=== PATIENT | female | born 1950 | race Two or more races ===

== ENCOUNTER 2024-09-06 15:24 | Inpatient (IN) | payer OTHER ==
[~2024-09-06] VITALS: Ht 160 cm; Wt 65.0 kg
--- NOTE | 2024-09-06 15:42 | ED.PDOC ---
GI ASSESSMENT HPI Comments 74 year old female LUIZA presents to the ED with chief complaint of N/V. Patient reports that about an hour ago, she has been experiencing multiple episodes of nausea and vomiting with associated chills after taking her daily HTN medication. Patient denies any chest pain, diarrhea, dizziness, headache, or dysuria. Patient complains of intermittent abdominal pain. Patient appears toxic and additionally, appears to be in poor overall health at time of evaluation. Patient was tachycardic at arrival. 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, Medications, Allergies Allergies: Coded Allergies: NO KNOWN ALLERGIES (Unverified , 09/06/24) Information Source: Patient, Emergency Med Personnel Mode of Arrival: Ambulatory Timing: Hours Duration: Since onset Prehospital treatment: None Quality: None Vomitus: Watery Stool: Normal Severity: Moderate Recent: Other (ingestion of daily medicine) Recent Hx of: None Pain Location: None Modifying Factors: Nothing Associated sign and symptoms: Nausea, Vomiting, Abdominal Pain Past Medical History PAST MEDICAL HISTORY: GERD, HTN Surgical History: Denies all surgeries ORTHO RN History: No Pertinent ORTHO RN History Family History Family History: Reviewed,noncontributory to illness Social History Smoker: Non-Smoker Alcohol: Denies ETOH Use Drugs: Denies Drug Use Lives In: Home Constitutional: reports: chills, fatigue, malaise, weakness; denies: diaphoresis, fever, sweats, others EENTM: denies: blurred vision, double vision, ear bleeding, ear discharge, ear drainage, ear pain, ear ringing, eye pain, eye redness, hearing loss, mouth pain, mouth swelling, nasal discharge, nose bleeding, nose congestion, nose pain, photophobia, tearing, throat pain, throat swelling, voice changes, others Respiratory: denies: cough, hemoptysis, orthopnea, SOB at rest, shortness of breath, SOB with excertion, stridor, wheezing, others Cardiovascular: denies: chest pain, dizzy spells, diaphoresis, Dyspnea on exertion, edema, irregular heart beat, left arm pain, lightheadedness, palpitations, PND, syncope, others Gastrointestinal: reports: nausea, vomiting; denies: abdomen distended, abdominal pain, blood streaked bowels, constipated, diarrhea, dysphagia, difficulty swallowing, hematemesis, melena, poor appetite, poor fluid intake, rectal bleeding, rectal pain, others Genitourinary: denies: abnormal vagina bleeding, burning, dyspareunia, dysuria, flank pain, frequency, hematuria, incontinence, pain, , vagina discharge, urgency, others Neurological: denies: dizziness, fainting, headache, left sided numbness, left sided weakness, numbness, paresthesia, pre-existing deficit, right sided numbness, right sided weakness, seizure, speech problems, tingling, tremors, weakness, others Musculoskeletal: denies: back pain, gout, joint pain, joint swelling, muscle pain, muscle stiffness, neck pain, others Integumetry: denies: bruises, change in color, change in hair/nails, dryness, laceration, lesions, lumps, rash, wounds, others Allergic/Immunocompromised: denies: Difficulty Healing, Frequent Infections, Hives, Itching, others Hematologic/Lymphatic: denies: anemia, blood clots, easy bleeding, easy bruising, swollen glands, others Endocrine: denies: excessive hunger, excessive sweating, excessive thirst, excessive urination, flushing, intolerance to cold, intolerance to heat, unexplained weight gain, unexplained weight loss, others Psychiatric: denies: anxiety, bipolar disorder, depression, hopeless, panic disorder, schizophrenia, sleepless, suicidal, others All Other Systems: Reviewed and Negative Physical Exam General Appearance: Moderate Distress (Patient was in moderate distress at time of evaluation.), Normal HEENT: Normal ENT Inspection, Pharynx Normal, TMs Normal Neck: Full Range of Motion, Non-Tender, Normal, Normal Inspection Respiratory: Chest Non-Tender, Lungs Clear, No Accessory Muscle Use, No Respiratory Distress, Normal Breath Sounds Cardiovascular: No Edema, No JVD, No Murmur, No Gallop, Normal Peripheral Pulses, Regular Rate/Rhythm Breast Exam: Deferred Gastrointestinal: Other ( Diffuse nonspecific abdominal pain throughout the periumbilical and epigastric region. No signs of trauma. No pulsatile masses.) Genitalia: Deferred Pelvic: Deferred Rectal: Deferred Extremities: No calf tenderness, Normal capillary refill, Normal inspection, Normal range of motion, Non-tender, No pedal edema Musculoskeletal : Apperance: Normal Neurologic: Alert, No Motor Deficits, Normal Affect, No Sensory Deficits Cerebellar Function: NOT DONE Reflexes: NOT DONE Skin: Dry, Normal Color, Warm Lymphatic: No Adenopathy Was a procedure done? Was a procedure done?: No GI differential Dx Differential Diagnosis: Cholangitis, Constipation, Gastroenteritis, Dehydration, Electrolyte Imbalance, Food Poisoning, Bacterial, Viral X-Ray, Labs, Meds, VS Vital Signs Date Time Temp Pulse Resp B/P (MAP) Pulse Ox O2 Delivery O2 Flow Rate FiO2 09/06/24 20:57 100.0 09/06/24 19:57 101.4 09/06/24 19:38 101.4 107 18 132/80 (97) 93 101.4 09/06/24 18:43 100.2 118 18 120/73 (89) 93 100.2 09/06/24 18:06 120 09/06/24 16:14 112 18 95 Room Air 09/06/24 16:14 98.9 112 18 145/65 (91) 95 98.9 09/06/24 15:40 98.8 90 18 161/134 (143) 94 98.8 Lab Test 09/06/24 18:03 09/06/24 16:21 09/06/24 15:56 Range/Units Lactic Acid Level 4.8 *H 5.0 *H 0.4-2.0 mmol/L Urine Color Light-yellow Yellow Urine Clarity Clear Clear Urine pH 5.0 5.0-9.0 Urine Specific [employer] 1.007 1.001-1.035 Urine Protein Negative Negative Urine Ketones 1+ H Negative Urine Blood Trace H Negative /uL Urine Nitrite Negative Negative Urine Bilirubin Negative Negative Urine Urobilinogen Normal Negative mg/dL Urine Leukocyte Esterase Negative Negative /uL Urine RBC 2 0 - 4 /hpf Urine Microscopic WBC 4 0-5 /HPF Urine Squamous Epithelial Cells Few <5 /hpf Urine Bacteria Few H None Seen /hpf Urine Mucus Few None Seen Urine Glucose 4+ H Normal mg/dL Influenza Type A Antigen Negative Negative Influenza Type B Antigen Negative Negative SARS-CoV-2 Antigen (Rapid) Negative NEGATIVE White Blood Count 3.4 L 4.4-10.8 10^3/uL Red Blood Count 5.03 4.0-5.20 10^6/uL Hemoglobin 16.9 H 12.2-16.2 g/dL Hematocrit 48.5 H 36.0-46.0 % Mean Corpuscular Volume 96.4 80.0-100.0 fL Mean Corpuscular Hemoglobin 33.6 H 28.0-32.0 pg Mean Corpuscular Hemoglobin Concent 34.9 32.0-36.0 g/dL Red Cell Distribution Width 12.4 11.8-14.3 % Platelet Count 199 140-450 10^3/uL Mean Platelet Volume 8.5 6.9-10.8 fL Neutrophils (%) (Auto) 37.0-80.0 % Lymphocytes (%) (Auto) 10.0-50.0 % Monocytes (%) (Auto) 0.0-12.0 % Basophils (%) (Auto) 0.0-2.0 % Neutrophils # (Auto) 1.6-8.6 10 ^3/uL Lymphocytes # (Auto) 0.4-5.4 10 ^3/uL Monocytes # (Auto) 0-1.3 10 ^3/uL Differential Total Cells Counted 100.0 100 Neutrophils % (Manual) 61 37.0-80.0 Band Neutrophils % (Manual) 5 Lymphocytes % (Manual) 25 10.0-50.0 Monocytes % (Manual) 9 0-12 Eosinophils % (Manual) 0 0-7 Basophils % (Manual) 0 0.0-2.0 Metamyelocytes % (manual) 0 Myelocytes % (Manual) 0 Promyelocytes % (Manual) 0 Blast Cells % (Manual) 0 Reactive Lymphocytes 0 Platelet Estimate Adequate Anisocytosis (manual) Slight Stomatocytes Few Sodium Level 140 136-145 mmol/L Potassium Level 3.8 3.5-5.1 mmol/L Chloride Level 104 98-107 mmol/L Carbon Dioxide Level 26 20-31 mmol/L Anion Gap 10 5-15 Blood Urea Nitrogen 20 9-23 mg/dL Creatinine 1.00 0.550-1.02 mg/dL Glomerular Filtration Rate Calc 59 >90 mL/min BUN/Creatinine Ratio 20.0 10.0-20.0 Serum Glucose 205 H 74-106 mg/dL Calcium Level 9.8 8.7-10.4 mg/dL Total Bilirubin 0.7 0.2-1.0 mg/dL Aspartate Amino Transferase (AST) 43 H 13-40 U/L Alanine Aminotransferase (ALT) 38 7-40 U/L Alkaline Phosphatase 163 H 46-116 U/L Troponin I High Sensitivity < 3 L </=34 ng/L B-Type Natriuretic Peptide 15.34 0-100 pg/mL Total Protein 7.1 5.7-8.2 g/dL Albumin 4.4 3.2-4.8 g/dL Lipase 39 12-53 U/L Current Medications Medications (Trade) Dose Ordered Sig/Stephanie Route Start Time Stop Time Status Last Admin Sodium Chloride 1,000 ml @ 250 mls/hr Q4H ONCE IV 09/06/24 15:45 09/06/24 19:44 DC 09/06/24 16:59 Ondansetron HCl (Zofran Po) 4 mg ONCE ONCE PO 09/06/24 15:45 09/06/24 15:46 DC 09/06/24 16:46 Metoclopramide HCl (Reglan Injection) 10 mg ONCE ONCE IV 09/06/24 15:45 09/06/24 15:46 DC 09/06/24 16:46 Piperacillin Sod/ Tazobactam Sod 100 ml @ 100 mls/hr ONCE ONCE IV 09/06/24 18:45 09/06/24 19:44 DC 09/06/24 21:15 Acetaminophen (Tylenol Tablet) 1,000 mg ONCE ONCE PO 09/06/24 19:45 09/06/24 19:46 DC 09/06/24 19:57 Vancomycin HCl 250 ml @ 250 mls/hr ONCE ONCE IV 09/06/24 19:45 09/06/24 20:44 DC 09/06/24 20:20 X-Ray, Labs, Meds, VS Comment All studies performed in the ED were evaluated by me personally. Patient presented with a leukopenia and additionally, spiked fever and blood pressure concerns and therefore, initiated a septic protocol. The events additional findings of the laboratories remarkable for an elevated lactic acid and hyperglycemia. Mechanism chest x-ray was pending at time of this note. Patient will be admitted for sepsis medical as well as management of any other comorbidities. Time of 1ST Reevaluation: 22:03 Reevaluation 1ST: Improved Consultation: PCP Patient Education/Counseling: Diagnosis, Treatment Family Education/Counseling: Diagnosis, Treatment, No Family Present Sepsis Sepsis Reasesment Focused Exam Sepsis focused exam: focus exam completed Departure 1 Departure Time of Disposition: 22:05 Impression: Primary Impression: Sepsis Additional Impression: Hyperglycemia due to diabetes mellitus Disposition: ADMITTED INPATIENT Condition: Stable Discharged With: Self Critical Care Note Critical Care Time?: Yes (45 min-critical care time only) Critical care comment: Due to a high probability of a clinically significant and possibly life- threatening deterioration, the patient required my highest level of preparedness to intervene emergently and therefore, I personally provided 45 minutes of criti [place] care time exclusive of time spent on separate billable procedures. This critical care time includes, but is not limited to, obtaining additional history, re-examination of the patient, re-examination of pulse oximetry, ordering and reviewing of studies, arrangement of urgent treatments with the development of a management plan as well as evaluation to patient's response to treatment with frequent reassessments and discussions with other providers. Stability Stability form required: No Heart Score Heart Score: Heart Score Response (Comments) Value History Slightly Suspicious 0 EKG Repolarization Disturb 1 Age >65 2 Risk Factors 1 or 2 risk factors 1 Troponin Normal limit 0 Total 4 I personally scribed for BREEZY WOODARD PAC ([email or web address]) on 09/06/24 at 15:42. Electronically submitted by Daniel Harrison ([email or web address]). BREEZY WOODARD PAC Sep 06, 2024 15:42
[2024-09-06 16:27] LABS: Hematocrit 48.5 % (36.0-46.0); Hemoglobin 16.9 g/dL (12.2-16.2); Mean Corpuscular Hemoglobin 33.6 pg (28.0-32.0); Mean Corpuscular Hgb Conc. 34.9 g/dL (32.0-36.0); Mean Corpuscular Volume 96.4 fL (80.0-100.0); Platelet Count (auto) 199 10^3/uL (140-450); Red Blood Cells 5.03 10^6/uL (4.0-5.20); Red Cell Distribution Width 12.4 % (11.8-14.3); White Blood Cell 3.4 10^3/uL (4.4-10.8)
[2024-09-06 16:29] LABS: Alanine Aminotransferase 38 U/L (7-40); Albumin 4.4 g/dL (3.2-4.8); Anion Gap 10 (5-15); Bilirubin, Total 0.7 mg/dL (0.2-1.0); Blood Urea Nitrogen 20 mg/dL (9-23); Calcium 9.8 mg/dL (8.7-10.4); Carbon Dioxide 26 mmol/L (20-31); Chloride 104 mmol/L (98-107); Lipase 39 U/L (12-53); Potassium 3.8 mmol/L (3.5-5.1); Sodium 140 mmol/L (136-145); Total Protein 7.1 g/dL (5.7-8.2)
[2024-09-06 16:34] LABS: Alkaline Phosphatase 163 U/L (46-116); Aspartate Aminotransferase 43 U/L (13-40); Glucose 205 mg/dL (74-106)
[2024-09-06 16:36] LABS: Basophils % (manual) 0 (0.0-2.0); Blast Cells 0; Eosinophils % (manual) 0 (0-7); Metamyelocytes % 0; Myelocytes % 0; Promyelocytes % 0; Reactive Lymphocytes 0
[2024-09-06] MEDS: ONDANSETRON ODT 4 MG TAB PO ONE (16:46)
[2024-09-06] MEDS: METOCLOPRAMIDE HCL 5MG/ml INJ 2ml VIAL IV ONE (16:46)
[2024-09-06] MEDS: SODIUM CHLORIDE 0.9% 1,000 ML IV ONE (16:59)
[2024-09-06 17:02] LABS: Anisocytosis Slight; Band Neutrophils % (manual) 5; Lymphocytes % (manual) 25 (10.0-50.0); Monocytes % (manual) 9 (0-12); Platelet Estimate Adequate; Stomatocytes Few
[2024-09-06 17:10] LABS: COVID19 ANTIGEN SOFIA FIA NEGATIVE (NEGATIVE); Rapid Influenza A Negative (Negative); Rapid Influenza B Negative (Negative)
[2024-09-06] MEDS ORDERED: VANCOMYCIN PER PHARMACY 0 MG IV SCH (18:45)
[2024-09-06] MEDS: ACETAMINOPHEN 325 MG TAB PO ONE (19:57)
[2024-09-06] MEDS: VANCOMYCIN 1GM/250ML KIT 250 ML IV ONE (20:20)
[2024-09-06] MEDS: PIPERACILLIN-TAZOB 3.375GM 100 ML IV ONE (21:15)
[2024-09-06 21:40] LABS: Urine Bacteria FEW /hpf (None Seen); Urine Blood TRACE /uL (Negative); Urine Clarity Clear (Clear); Urine Color Light-Yellow (Yellow); Urine Mucus FEW (None Seen); Urine Protein, UAD Negative (Negative); Urine Specific Gravity 1.007 (1.001-1.035); Urine Squamous Epithelial Cell FEW /hpf (<5); Urine Urobilinogen Normal (Negative); Urine WBC 4 /HPF (0-5)
[2024-09-06 23:57] VITALS: PULSE 107; RESP 16; O2SAT 95
[2024-09-07] VITALS (8 sets, daily range): BP systolic 84–127; BP diastolic 41–61; PULSE 80–98; RESP 16–20; TEMP 98.2–101.6; O2SAT 93–98
--- NOTE | 2024-09-07 00:33 | DVH ---
Exam: CT CT AB PEL WO CON-NO ORAL OR IV History: ABD. PAIN Comparison Study: None Technique: Multidetector spiral CT of the abdomen was performed from lung bases to pubic symphysis. I maging was performed without IV contrast. Axial, coronal and sagittal multiplanar reformats were obta ined from the axial data set by the technologist. Radiation Dose : 1. Abdomen/Pelvis: CTDIvol 8.38 mGy, DLP 479.19 mGy*cm. Findings: Evaluation of solid organs is limited due to lack of intravenous contrast use. Lung Bases: No acute or significant lung base finding. Moderate posterior bibasilar subsegmental atel ectasis. Normal heart size. No pleural or pericardial effusion. Liver: The liver is enlarged, measuring up to 20.1 cm in craniocaudal dimension. Diffuse hepatic stea tosis. No focal lesions. Gallbladder and Biliary Tree: Calcific debris within the gallbladder. Spleen: Unremarkable Pancreas: The pancreas is grossly normal in appearance. Adrenal Glands: Unremarkable Kidneys: Kidneys are grossly normal without calculi or hydronephrosis. Bladder: Grossly unremarkable for degree of distention. Bowel: The stomach is grossly normal in appearance. Small bowel and colon are normal in caliber and d istribution. Diverticulosis coli. The appendix is not visualized; however, no secondary findings of a cute appendicitis identified. Ascites: Absent Lymphadenopathy: No mesenteric, retroperitoneal or periportal lymphadenopathy. Abdominal Wall and Mesentery: Unremarkable. Vasculature: The visualized abdominal aorta is normal in size and caliber. Atherosclerotic vascular c alcifications are identified. Evaluation of abdominal and pelvic vessels is limited due to lack of i ntravenous contrast. Pelvic Organs: Unremarkable Musculoskeletal: No aggressive focal bony lesions, acute fractures or dislocation. IMPRESSION: 1. No acute abdominal or pelvic findings. 2. Hepatomegaly and hepatic steatosis. Radiation optimization: All CT scans at this facility use at least one of these dose optimization raysa hniques: automated exposure control mA and/or kV adjustment per patient size (includes targeted exam s where dose is matched to clinical indication) or iterative reconstruction.
[2024-09-07 01:57] LABS: Lactic Acid w/Reflex 6.4 mmol/L (0.4-2.0)
[2024-09-07] MEDS ORDERED: HYDROcodone-ACET 5/325MG TAB PO PRN (02:45)
[2024-09-07] MEDS ORDERED: MORPHINE SULFATE INJ 2 MG/ml SYRG IV PRN (02:45)
[2024-09-07] MEDS ORDERED: ONDANSETRON HCL 4 MG/2 ML VIAL IV PRN (02:45)
[2024-09-07] MEDS: SODIUM CHLORIDE 0.9% 1,000 ML IV ONE ×2 (03:49→09:04)
--- NOTE | 2024-09-07 04:19 | DVHHP2 ---
History of Present Illness Reason for Visit: Abdominal pain History of Present Illness 74-year-old female presents for evaluation of abdominal pain. Patient reports intermittent episodes of abdominal pain for the past one day. She states having multiple episodes of nausea with vomiting. She states not being able to keep anything down her stomach. She reports feeling dehydrated. Denies fever or chills. No dizziness. No other acute complaints. Past Medical History Hypertension and GERD Past Surgical History Denies Family History Noncontributory Smoke: No ALCOHOL: none Drugs: None Lives: with Family Review of Systems Review of Systems Review of systems are currently negative otherwise addressed in HPI. Allergies: Coded Allergies: NO KNOWN ALLERGIES (Unverified , 09/06/24) Medications Current Medications Medications Dose Ordered Sig/Stephanie Route Start Time Stop Time Status Last Admin Dose Admin Vancomycin HCl 0 ml @ 0 mls/hr UD IV 09/06/24 18:45 UNV Ceftriaxone Sodium 50 ml @ 100 mls/hr DAILY@09 IV 09/07/24 09:00 Pantoprazole Sodium 40 mg DAILY IV 09/07/24 10:00 Acetaminophen/ Hydrocodone Bitart 1 tab Q4HP PRN PO 09/07/24 02:45 Ondansetron HCl 4 mg Q4HP PRN IV 09/07/24 02:45 Acetaminophen 650 mg Q6HP PRN PO 09/07/24 02:45 Morphine Sulfate 2 mg Q6HPRN PRN IV 09/07/24 02:45 Exam Vital Signs Vital Signs Date Time Temp Pulse Resp B/P (MAP) Pulse Ox O2 Delivery O2 Flow Rate FiO2 09/07/24 03:00 88 18 107/59 (75) 99 09/07/24 00:00 98.2 98.2 09/06/24 23:57 Nasal Cannula* 2 28 Exam Gen: 74-year-old female in mild distress Skin: Warm, dry, normal color and texture, no rash. HEENT: Normocephalic atraumatic, mucous membranes moist and pink. Neck: Cervical and supraclavicular nodes normal without enlargement, trachea is midline, thyroid gland is normal without masses. Pulmonary: Clear to auscultation and percussion bilaterally. Cardiac: Sinus tachycardia Abdomen: Soft, nontender, nondistended, bowel sounds present all 4 quadrants, no guarding, no rigidity, no organomegaly. Extremities: No cyanosis, clubbing, no edema Neuro: Cranial nerves II through XII grossly intact, normal affect and speech, no focal motor deficits. Labs/Xrays ORDERING PHYSICIAN: SHAHZAD PATEL PROCEDURE(s): ABPL - CT AB PEL WO CON-NO ORAL OR IV REASON: ABD. PAIN ORDER NUMBER(s): [id number], ACCESSION NUMBER(s): [id number] Exam: CT CT AB PEL WO CON-NO ORAL OR IV History: ABD. PAIN Comparison Study: None Technique: Multidetector spiral CT of the abdomen was performed from lung bases to pubic symphysis. Imaging was performed without IV contrast. Axial, coronal and sagittal multiplanar reformats were obtained from the axial data set by the technologist. Radiation Dose : 1. Abdomen/Pelvis: CTDIvol 8.38 mGy, DLP 479.19 mGy*cm. Findings: Evaluation of solid organs is limited due to lack of intravenous contrast use. Lung Bases: No acute or significant lung base finding. Moderate posterior bibasilar subsegmental atelectasis. Normal heart size. No pleural or pericardial effusion. Liver: The liver is enlarged, measuring up to 20.1 cm in craniocaudal dimension. Diffuse hepatic steatosis. No focal lesions. Gallbladder and Biliary Tree: Calcific debris within the gallbladder. Spleen: Unremarkable Pancreas: The pancreas is grossly normal in appearance. Adrenal Glands: Unremarkable Kidneys: Kidneys are grossly normal without calculi or hydronephrosis. Bladder: Grossly unremarkable for degree of distention. Bowel: The stomach is grossly normal in appearance. Small bowel and colon are normal in caliber and distribution. Diverticulosis coli. The appendix is not visualized; however, no secondary findings of acute appendicitis identified. Ascites: Absent Lymphadenopathy: No mesenteric, retroperitoneal or periportal lymphadenopathy. Abdominal Wall and Mesentery: Unremarkable. Vasculature: The visualized abdominal aorta is normal in size and caliber. Atherosclerotic vascular calcifications are identified. Evaluation of abdominal and pelvic vessels is limited due to lack of intravenous contrast. Pelvic Organs: Unremarkable Musculoskeletal: No aggressive focal bony lesions, acute fractures or dislocation. IMPRESSION: 1. No acute abdominal or pelvic findings. 2. Hepatomegaly and hepatic steatosis. Radiation optimization: All CT scans at this facility use at least one of these dose optimization techniques: automated exposure control mA and/or kV adjustment per patient size (includes targeted exams where dose is matched to clinical indication) or iterative reconstruction. Labs Test 09/07/24 01:20 09/06/24 16:21 09/06/24 15:56 Range/Units Lactic Acid Level 6.4 *H 0.4-2.0 mmol/L Urine Color Light-yellow Yellow Urine Clarity Clear Clear Urine pH 5.0 5.0-9.0 Urine Specific [place] 1.007 1.001-1.035 Urine Protein Negative Negative Urine Ketones 1+ H Negative Urine Blood Trace H Negative /uL Urine Nitrite Negative Negative Urine Bilirubin Negative Negative Urine Urobilinogen Normal Negative mg/dL Urine Leukocyte Esterase Negative Negative /uL Urine RBC 2 0 - 4 /hpf Urine Microscopic WBC 4 0-5 /HPF Urine Squamous Epithelial Cells Few <5 /hpf Urine Bacteria Few H None Seen /hpf Urine Mucus Few None Seen Urine Glucose 4+ H Normal mg/dL Influenza Type A Antigen Negative Negative Influenza Type B Antigen Negative Negative SARS-CoV-2 Antigen (Rapid) Negative NEGATIVE White Blood Count 3.4 L 4.4-10.8 10^3/uL Red Blood Count 5.03 4.0-5.20 10^6/uL Hemoglobin 16.9 H 12.2-16.2 g/dL Hematocrit 48.5 H 36.0-46.0 % Mean Corpuscular Volume 96.4 80.0-100.0 fL Mean Corpuscular Hemoglobin 33.6 H 28.0-32.0 pg Mean Corpuscular Hemoglobin Concent 34.9 32.0-36.0 g/dL Red Cell Distribution Width 12.4 11.8-14.3 % Platelet Count 199 140-450 10^3/uL Mean Platelet Volume 8.5 6.9-10.8 fL Neutrophils (%) (Auto) 37.0-80.0 % Lymphocytes (%) (Auto) 10.0-50.0 % Monocytes (%) (Auto) 0.0-12.0 % Basophils (%) (Auto) 0.0-2.0 % Neutrophils # (Auto) 1.6-8.6 10 ^3/uL Lymphocytes # (Auto) 0.4-5.4 10 ^3/uL Monocytes # (Auto) 0-1.3 10 ^3/uL Differential Total Cells Counted 100.0 100 Neutrophils % (Manual) 61 37.0-80.0 Band Neutrophils % (Manual) 5 Lymphocytes % (Manual) 25 10.0-50.0 Monocytes % (Manual) 9 0-12 Eosinophils % (Manual) 0 0-7 Basophils % (Manual) 0 0.0-2.0 Metamyelocytes % (manual) 0 Myelocytes % (Manual) 0 Promyelocytes % (Manual) 0 Blast Cells % (Manual) 0 Reactive Lymphocytes 0 Platelet Estimate Adequate Anisocytosis (manual) Slight Stomatocytes Few Sodium Level 140 136-145 mmol/L Potassium Level 3.8 3.5-5.1 mmol/L Chloride Level 104 98-107 mmol/L Carbon Dioxide Level 26 20-31 mmol/L Anion Gap 10 5-15 Blood Urea Nitrogen 20 9-23 mg/dL Creatinine 1.00 0.550-1.02 mg/dL Glomerular Filtration Rate Calc 59 >90 mL/min BUN/Creatinine Ratio 20.0 10.0-20.0 Serum Glucose 205 H 74-106 mg/dL Calcium Level 9.8 8.7-10.4 mg/dL Total Bilirubin 0.7 0.2-1.0 mg/dL Aspartate Amino Transferase (AST) 43 H 13-40 U/L Alanine Aminotransferase (ALT) 38 7-40 U/L Alkaline Phosphatase 163 H 46-116 U/L Troponin I High Sensitivity < 3 L </=34 ng/L B-Type Natriuretic Peptide 15.34 0-100 pg/mL Total Protein 7.1 5.7-8.2 g/dL Albumin 4.4 3.2-4.8 g/dL Lipase 39 12-53 U/L Assessment/Plan Assessment/Plan Assessment Acute abdominal pain SIRS Lactic acidosis Acute gastroenteritis Plan Admit the patient to [facility] to the hospitalist Clear liquid diet GI consult Maintenance IV fluids Pain management Continue treatment per orders. Plan discussed with: Patient My Orders Orders - SHAHZAD PATEL AGACNP Procedure Category Date Status Time Ct Ab Pel Wo Con-No CT 09/06/24 Resulted Oral Or Iv 22:22 Clear Liq Diet DIET 09/07/24 Transmitted Breakfast * Gi D[facility] Operator Helper CONS 09/07/24 Transmitted 02:40 Ceftriaxone 1gm/50ml PHA 09/07/24 In Process D5w (Rocephin) 09:00 Sodium Chloride 0.9% PHA 09/07/24 In Process 02:45 Pantoprazole PHA 09/07/24 In Process (Protonix) 10:00 Basic Metabolic Panel LAB 09/08/24 Verified 04:00 Admit ADMIT 09/07/24 Transmitted 02:40 Hydrocodone-Acet PHA 09/07/24 In Process 5/325mg Tab ([place] 02:45 Ondansetron Hcl PHA 09/07/24 In Process (Zofran) 02:45 Complete Blood Count LAB 09/08/24 Verified 04:00 Condition: Stable TERRA 09/07/24 In Process 02:40 Acetaminophen Tablet PHA 09/07/24 In Process (Tylenol Tablet) 02:45 Bedrest With Bathroom TERRA 09/07/24 In Process Privileg 02:40 Morphine Sulfate PHA 09/07/24 In Process Injection 02:45 Date of Service: Sep 07, 2024 Billing Provider: SHAHZAD PATEL Common Visit Codes: [id number] INP/OBS CARE (HIGH) SHAHZAD PATEL Sep 07, 2024 04:19
[2024-09-07] MEDS: SODIUM CHLORIDE 0.9% 500 ML IV ONE ×2 (04:34→21:50)
[2024-09-07] MEDS: ACETAMINOPHEN 325 MG TAB PO PRN (04:46)
[2024-09-07] MEDS ORDERED: PANT40T PO (04:50)
[2024-09-07] MEDS ORDERED: NITR100C6 PO (04:50)
[2024-09-07] MEDS ORDERED: LOS25T PO (04:50)
[2024-09-07] MEDS ORDERED: MET50T PO (04:50)
[2024-09-07] MEDS ORDERED: VANCOMYCIN PER PHARMACY 0 MG IV SCH ×2 (08:00→21:45)
[2024-09-07] MEDS ORDERED: cefTRIAXone 1GM/50ML D5W 50 ML IV SCH (09:00)
[2024-09-07] MEDS: PANTOPRAZOLE 40 MG/10 ML VIAL INJ IV SCH (09:04)
[2024-09-07] MEDS: PIPERACILLIN-TAZOB 3.375GM 100 ML IV SCH (09:05)
--- NOTE | 2024-09-07 11:12 | DVHPN2 ---
Subjective Feels better More alert and oriented Changes from previous H/P or p: Changes Objective Vitals Vital Signs Date Time Temp Pulse Resp B/P (MAP) Pulse Ox O2 Delivery O2 Flow Rate FiO2 09/07/24 08:34 98.2 83 18 111/59 (76) 94 98.2 09/07/24 08:15 Nasal Cannula* 2 28 Intake/Output Intake and Output 09/07/24 07:00 Intake Total 550 ml Balance 550 ml Intake Oral 50 ml IV Total 500 ml General Appearance: Alert, Oriented X3, Cooperative Lungs: Clear to auscultation, Normal air movement Cardiovascular: Regular rate, Normal S1 Abdomen: Normal bowel sounds, Soft, No tenderness Extremities: No edema Medications Current Medications Medications Dose Ordered Sig/Stephanie Route Start Time Stop Time Status Last Admin Dose Admin Pantoprazole Sodium 40 mg DAILY IV 09/07/24 10:00 09/07/24 09:04 40 MG Acetaminophen/ Hydrocodone Bitart 1 tab Q4HP PRN PO 09/07/24 02:45 Ondansetron HCl 4 mg Q4HP PRN IV 09/07/24 02:45 Acetaminophen 650 mg Q6HP PRN PO 09/07/24 02:45 09/07/24 04:46 650 MG Morphine Sulfate 2 mg Q6HPRN PRN IV 09/07/24 02:45 Piperacillin Sod/ Tazobactam Sod 100 ml @ 25 mls/hr Q8HR IV 09/07/24 08:30 09/07/24 09:05 25 MLS/HR Laboratory Results Laboratory Tests 09/06/24 15:56 Chemistry Test 09/06/24 15:56 Albumin 4.4 g/dL (3.2-4.8) Calcium Level 9.8 mg/dL (8.7-10.4) Total Protein 7.1 g/dL (5.7-8.2) Lipid panel Test 09/06/24 15:56 Lipase 39 U/L (12-53) Cardiac Markers Test 09/06/24 15:56 B-Type Natriuretic Peptide 15.34 pg/mL (0-100) LFT Test 09/06/24 15:56 Alanine Aminotransferase (ALT) 38 U/L (7-40) Alkaline Phosphatase 163 U/L (46-116) H Aspartate Amino Transferase (AST) 43 U/L (13-40) H Total Bilirubin 0.7 mg/dL (0.2-1.0) Urinalysis Test 09/06/24 16:21 Urine Color Light-yellow (Yellow) Urine Clarity Clear (Clear) Urine pH 5.0 (5.0-9.0) Urine Specific [place] 1.007 (1.001-1.035) Urine Protein Negative (Negative) Urine Ketones 1+ (Negative) H Urine Blood Trace /uL (Negative) H Urine Nitrite Negative (Negative) Urine Bilirubin Negative (Negative) Urine Urobilinogen Normal mg/dL (Negative) Urine Leukocyte Esterase Negative /uL (Negative) Urine RBC 2 /hpf (0 - 4) Urine Microscopic WBC 4 /HPF (0-5) Urine Squamous Epithelial Cells Few /hpf (<5) Urine Bacteria Few /hpf (None Seen) H Urine Mucus Few (None Seen) Urine Glucose 4+ mg/dL (Normal) H Microbiology Microbiology Date/Time Source Procedure Growth Status 09/06/24 19:00 Blood Blood Culture - Preliminary Resulted Assessment/Plan Assessment/Plan Acute metabolic encephalopathy Sepsis UTI Bacteremia with G- rods HTN GERD PLAN: IV Zosyn Advance diet Blood culture g- rods Physical therapy Discussed with family at the bedside Plan discussed with: Patient, Daughter My Orders Orders - SHAHRIAR SHAH MD Procedure Category Date Status Time Mechanical Soft Diet DIET 09/07/24 Transmitted Lunch Pt Request For Service PT 09/07/24 Logged 10:42 Date of Service: Sep 07, 2024 Billing Provider: SHAHRIAR SHAH MD Common Visit Codes: NOT BILLABLE SHAHRIAR SHAH MD Sep 07, 2024 11:12
[2024-09-07 19:06] LABS: Base Excess -6.8 mmol/L (-2.0-3.0)
[2024-09-07] MEDS ORDERED: VANCOMYCIN 1GM/250ML KIT 250 ML IV SCH (20:00)
[2024-09-07] MEDS: SODIUM BICARB 8.4% 50Meq/50ml SYR Vial IV ONE (20:04)
--- NOTE | 2024-09-07 21:10 | DVHINCON2 ---
Date of service: Sep 07, 2024 Referring Physician Laci Maria NP Reason for Consultation Acute hypoxic respiratory failure History of Present Illness A 74-year-old woman with past medical history of hypertension and GERD who presented to ED on 09/06/24 for evaluation of abdominal pain. Patient reported intermittent episodes of abdominal pain for the past one day as well as multiple episodes of nausea with vomiting. She has not been able to keep anything down her stomach, feeling dehydrated. Denied fever, chills, dizziness or other acute complaints. Patient was admitted for further care, and pulmonary consultation is requested for evaluation and management of acute hypoxic respiratory failure. Review of Systems: 14-point review of systems negative unless otherwise noted above. Past Medical History Hypertension and GERD Past Surgical History: Denies Medications: Reviewed. Allergies: No known drug allergies. Family History: Cancer Social History: Nonsmoker. No alcohol or illicit drug use. Family History: FH: cancer of trachea, bronchus and lung G8 FATHER FHx: cancer G8 MOTHER Allergies: Coded Allergies: NO KNOWN ALLERGIES (Unverified , 09/06/24) Home Meds Reported Medications Nitrofurantoin Monohyd Macro (Nitrofurantoin Monohydrat) 100 Mg Cap, 1 CAP PO BID 09/07/24 Metoprolol Tartrate (LOPRESSOR TABLET) 50 Mg Tb, 1 TAB PO BID 09/07/24 Pantoprazole Sodium Sesquihydr (Pantoprazole Sodium) 40 Mg Tab, 1 TAB PO DAILY 09/07/24 Losartan Potassium (Losartan Potassium) 25 Mg Tab, 1 TAB PO DAILY 09/07/24 Current Medications Current Medications Medications (Trade) Dose Ordered Sig/Stephanie Route PRN Reason Start Time Stop Time Status Last Admin Ceftriaxone Sodium 50 ml @ 100 mls/hr DAILY@09 IV 09/07/24 09:00 09/07/24 07:55 DC Pantoprazole Sodium (Protonix) 40 mg DAILY IV 09/07/24 10:00 09/07/24 09:04 Acetaminophen/ Hydrocodone Bitart ([place] 5/325MG Tab) 1 tab Q4HP PRN PO MODERATE PAIN (4-6 PAIN SCALE) 09/07/24 02:45 09/07/24 11:12 DC Ondansetron HCl (Zofran) 4 mg Q4HP PRN IV NAUSEA / VOMITING 09/07/24 02:45 Acetaminophen (Tylenol Tablet) 650 mg Q6HP PRN PO PAIN SCALE 1-3 OR TEMP>100.4 09/07/24 02:45 09/07/24 18:45 Morphine Sulfate 2 mg Q6HPRN PRN IV SEVERE PAIN (7-10 PAIN SCALE) 09/07/24 02:45 Vancomycin HCl 0 ml @ 0 mls/hr UD IV 09/07/24 08:00 09/07/24 10:42 DC Piperacillin Sod/ Tazobactam Sod 100 ml @ 25 mls/hr Q8HR IV 09/07/24 08:30 09/07/24 20:51 Vancomycin HCl 250 ml @ 200 mls/hr Q24H IV 09/07/24 20:00 09/07/24 10:42 DC Vital Signs Vital Signs Date Time Temp Pulse Resp B/P (MAP) Pulse Ox O2 Delivery O2 Flow Rate FiO2 09/07/24 19:45 99.0 09/07/24 16:35 84 18 112/43 (66) 96 09/07/24 08:15 Nasal Cannula* 2 28 Physical Exam Gen.: Patient lying in bed in no apparent distress. On supplemental oxygen. Head: Normocephalic, atraumatic. Eyes: EOMI/PERRLA. Ears: Normal hearing. Normal anatomy. Neck/trachea: Trachea midline, supple. Nose: Normal external anatomy. Mouth: Moist mucous membranes. Chest: Decreased air entry bilaterally. No wheezing or rhonchi. Cardiovascular: Positive S1, positive S2. Regular rate and rhythm. Abdomen: Positive bowel sounds in all 4 quadrants. Soft, non-tender, non- distended. : Deferred. Rectal: Deferred. Skin: Warm, dry. Intact. Extremities: 2+ radial pulses bilaterally. No lower extremity edema. Neuro: Awake, alert, oriented x3. No gross motor or sensory deficits. Cranial nerves II through XII intact. Gait not assessed. Labs/Diagnostic Data Labs Test 09/07/24 18:55 09/07/24 01:20 09/06/24 16:21 09/06/24 15:56 Range/Units Blood Gas Specimen Type Arterial Blood Gas Sample Site Right radial Blood Gas Patient Temperature 37.0 Arterial Blood Date Drawn [id number] Arterial Blood pH 7.446 7.350-7.450 Arterial Blood Partial Pressure CO2 22.1 L 32.0-45.0 mmHg Arterial Blood Partial Pressure O2 68.2 L 83.0-108.0 mmHg Arterial Blood HCO3 14.9 L 21.0-28.0 mmol/L Arterial Blood Oxygen Saturation 94.7 94.0-98.0 % Arterial Blood Base Excess -6.8 L -2.0-3.0 mmol/L Arterial Blood Oxyhemoglobin 94.1 94.0-98.0 % Arterial Blood Carboxyhemoglobin 0.2 L 0.5-1.5 % Arterial Blood Methemoglobin 0.4 0.0-1.5 % Jerald Test Modified Blood Gas Total Hemoglobin 14.90 12.0-16.0 g/dL Blood Gas Liter Flow 4.00 Blood Gas Modality Nasal cannula Blood Gas Spontaneous Rate 22 FiO2 % 36.0 Specimen Drawn By kathyton rt Lactic Acid Level 6.4 *H 0.4-2.0 mmol/L Urine Color Light-yellow Yellow Urine Clarity Clear Clear Urine pH 5.0 5.0-9.0 Urine Specific [place] 1.007 1.001-1.035 Urine Protein Negative Negative Urine Ketones 1+ H Negative Urine Blood Trace H Negative /uL Urine Nitrite Negative Negative Urine Bilirubin Negative Negative Urine Urobilinogen Normal Negative mg/dL Urine Leukocyte Esterase Negative Negative /uL Urine RBC 2 0 - 4 /hpf Urine Microscopic WBC 4 0-5 /HPF Urine Squamous Epithelial Cells Few <5 /hpf Urine Bacteria Few H None Seen /hpf Urine Mucus Few None Seen Urine Glucose 4+ H Normal mg/dL Influenza Type A Antigen Negative Negative Influenza Type B Antigen Negative Negative SARS-CoV-2 Antigen (Rapid) Negative NEGATIVE White Blood Count 3.4 L 4.4-10.8 10^3/uL Red Blood Count 5.03 4.0-5.20 10^6/uL Hemoglobin 16.9 H 12.2-16.2 g/dL Hematocrit 48.5 H 36.0-46.0 % Mean Corpuscular Volume 96.4 80.0-100.0 fL Mean Corpuscular Hemoglobin 33.6 H 28.0-32.0 pg Mean Corpuscular Hemoglobin Concent 34.9 32.0-36.0 g/dL Red Cell Distribution Width 12.4 11.8-14.3 % Platelet Count 199 140-450 10^3/uL Mean Platelet Volume 8.5 6.9-10.8 fL Neutrophils (%) (Auto) 37.0-80.0 % Lymphocytes (%) (Auto) 10.0-50.0 % Monocytes (%) (Auto) 0.0-12.0 % Basophils (%) (Auto) 0.0-2.0 % Neutrophils # (Auto) 1.6-8.6 10 ^3/uL Lymphocytes # (Auto) 0.4-5.4 10 ^3/uL Monocytes # (Auto) 0-1.3 10 ^3/uL Differential Total Cells Counted 100.0 100 Neutrophils % (Manual) 61 37.0-80.0 Band Neutrophils % (Manual) 5 Lymphocytes % (Manual) 25 10.0-50.0 Monocytes % (Manual) 9 0-12 Eosinophils % (Manual) 0 0-7 Basophils % (Manual) 0 0.0-2.0 Metamyelocytes % (manual) 0 Myelocytes % (Manual) 0 Promyelocytes % (Manual) 0 Blast Cells % (Manual) 0 Reactive Lymphocytes 0 Platelet Estimate Adequate Anisocytosis (manual) Slight Stomatocytes Few Sodium Level 140 136-145 mmol/L Potassium Level 3.8 3.5-5.1 mmol/L Chloride Level 104 98-107 mmol/L Carbon Dioxide Level 26 20-31 mmol/L Anion Gap 10 5-15 Blood Urea Nitrogen 20 9-23 mg/dL Creatinine 1.00 0.550-1.02 mg/dL Glomerular Filtration Rate Calc 59 >90 mL/min BUN/Creatinine Ratio 20.0 10.0-20.0 Serum Glucose 205 H 74-106 mg/dL Calcium Level 9.8 8.7-10.4 mg/dL Total Bilirubin 0.7 0.2-1.0 mg/dL Aspartate Amino Transferase (AST) 43 H 13-40 U/L Alanine Aminotransferase (ALT) 38 7-40 U/L Alkaline Phosphatase 163 H 46-116 U/L Troponin I High Sensitivity < 3 L </=34 ng/L B-Type Natriuretic Peptide 15.34 0-100 pg/mL Total Protein 7.1 5.7-8.2 g/dL Albumin 4.4 3.2-4.8 g/dL Lipase 39 12-53 U/L Microbiology Date/Time Source Procedure Growth Status 09/06/24 19:00 Blood Blood Culture - Preliminary Resulted Assessment Impression: Acute hypoxic respiratory failure Sepsis due to Bacteremia with GPCs Lactic acidosis Acute gastroenteritis Abdominal pain, acute Febrile Plan: Supplemental oxygen Titrate to keep O2 sats above 92%. Patient noted to be febrile at 100.8 Obtain STAT ABG and chest x-ray. Tylenol for fevers. Continue antibiotics Follow up blood cultures - positive for GPC Pain control Avoid oversedation Monitor renal function. Monitor electrolytes. Supplement as necessary. Monitor ins and outs. F/u GI recommendations DVT prophylaxis. Prognosis: Poor given patient's multiple co-morbidities. Rest of plan per hospitalist and other consultants. Thank you, FRIEDA Maria, for allowing me to participate in this patient's care. Further recommendations will depend on the patient's clinical course. Please do not hesitate to contact me if you have any questions or concerns. This medical document was created using an electronic medical record system with [email or web address] dictation system. Although these documentations are being carefully reviewed, there may still be some phonetic and typographical changes. The errors are purely typographical, due to imperfection on the software program, and do not reflect any compromise in the patient's medical care. Plan discussed with: Patient, Other (VALERIE Oden/FRIEDA Maria/) GREGORIO BLISS MD Sep 07, 2024 21:10
[2024-09-07] MEDS ORDERED: LACTATED RINGER'S 1,000 ML IV ONE (21:45)
--- NOTE | 2024-09-07 21:54 | DVHINCON2 ---
Date of service: Sep 07, 2024 Referring Physician Laci Maria Reason for Consultation Abdominal pain History of Present Illness 74-year-old female presents for evaluation of abdominal pain. Patient reports intermittent episodes of abdominal pain for the past one day. She states having multiple episodes of nausea with vomiting. She states not being able to keep anything down her stomach. She reports feeling dehydrated. Denies fever or chills. No dizziness. No other acute complaints. Past Medical History Past Medical History Hypertension and GERD Past Surgical History Past Surgical History Denies Family History: FH: cancer of trachea, bronchus and lung G8 FATHER FHx: cancer G8 MOTHER Allergies: Coded Allergies: NO KNOWN ALLERGIES (Unverified , 09/06/24) Home Meds Reported Medications Nitrofurantoin Monohyd Macro (Nitrofurantoin Monohydrat) 100 Mg Cap, 1 CAP PO BID 09/07/24 Metoprolol Tartrate (LOPRESSOR TABLET) 50 Mg Tb, 1 TAB PO BID 09/07/24 Pantoprazole Sodium Sesquihydr (Pantoprazole Sodium) 40 Mg Tab, 1 TAB PO DAILY 09/07/24 Losartan Potassium (Losartan Potassium) 25 Mg Tab, 1 TAB PO DAILY 09/07/24 Current Medications Current Medications Medications (Trade) Dose Ordered Sig/Stephanie Route PRN Reason Start Time Stop Time Status Last Admin Ceftriaxone Sodium 50 ml @ 100 mls/hr DAILY@09 IV 09/07/24 09:00 09/07/24 07:55 DC Pantoprazole Sodium (Protonix) 40 mg DAILY IV 09/07/24 10:00 09/07/24 09:04 Acetaminophen/ Hydrocodone Bitart ([place] 5/325MG Tab) 1 tab Q4HP PRN PO MODERATE PAIN (4-6 PAIN SCALE) 09/07/24 02:45 09/07/24 11:12 DC Ondansetron HCl (Zofran) 4 mg Q4HP PRN IV NAUSEA / VOMITING 09/07/24 02:45 Acetaminophen (Tylenol Tablet) 650 mg Q6HP PRN PO PAIN SCALE 1-3 OR TEMP>100.4 09/07/24 02:45 09/07/24 18:45 Morphine Sulfate 2 mg Q6HPRN PRN IV SEVERE PAIN (7-10 PAIN SCALE) 09/07/24 02:45 Vancomycin HCl 0 ml @ 0 mls/hr UD IV 09/07/24 08:00 09/07/24 10:42 DC Piperacillin Sod/ Tazobactam Sod 100 ml @ 25 mls/hr Q8HR IV 09/07/24 08:30 09/07/24 20:51 Vancomycin HCl 250 ml @ 200 mls/hr Q24H IV 09/07/24 20:00 09/07/24 10:42 DC Lactated Ringer's 1,000 ml @ 150 mls/hr Q6H40M IV 09/07/24 21:45 UNV Vancomycin HCl 0 ml @ 0 mls/hr UD IV 09/07/24 21:45 UNV Vital Signs Vital Signs Date Time Temp Pulse Resp B/P (MAP) Pulse Ox O2 Delivery O2 Flow Rate FiO2 09/07/24 21:00 98.9 87 18 84/41 (55) 93 98.9 09/07/24 08:15 Nasal Cannula* 2 28 Physical Exam Gen: 74-year-old female in no distress; sleeping Skin: Warm, dry, normal color and texture, no rash. HEENT: Normocephalic atraumatic, mucous membranes moist and pink. Neck: Cervical and supraclavicular nodes normal without enlargement, trachea is midline, thyroid gland is normal without masses. Pulmonary: Clear to auscultation and percussion bilaterally. CVS S1S2 rrr Abdomen: Soft, nontender, nondistended, bowel sounds present all 4 quadrants, no guarding, no rigidity, no organomegaly. Extremities: No cyanosis, clubbing, no edema Neuro: Cranial nerves II through XII grossly intact, normal affect and speech, no focal motor deficits. Labs/Diagnostic Data Labs Test 09/07/24 18:55 09/07/24 01:20 09/06/24 16:21 09/06/24 15:56 Range/Units Blood Gas Specimen Type Arterial Blood Gas Sample Site Right radial Blood Gas Patient Temperature 37.0 Arterial Blood Date Drawn [id number] Arterial Blood pH 7.446 7.350-7.450 Arterial Blood Partial Pressure CO2 22.1 L 32.0-45.0 mmHg Arterial Blood Partial Pressure O2 68.2 L 83.0-108.0 mmHg Arterial Blood HCO3 14.9 L 21.0-28.0 mmol/L Arterial Blood Oxygen Saturation 94.7 94.0-98.0 % Arterial Blood Base Excess -6.8 L -2.0-3.0 mmol/L Arterial Blood Oxyhemoglobin 94.1 94.0-98.0 % Arterial Blood Carboxyhemoglobin 0.2 L 0.5-1.5 % Arterial Blood Methemoglobin 0.4 0.0-1.5 % Jerald Test Modified Blood Gas Total Hemoglobin 14.90 12.0-16.0 g/dL Blood Gas Liter Flow 4.00 Blood Gas Modality Nasal cannula Blood Gas Spontaneous Rate 22 FiO2 % 36.0 [facility] Lactic Acid Level 6.4 *H 0.4-2.0 mmol/L Urine Color Light-yellow Yellow Urine Clarity Clear Clear Urine pH 5.0 5.0-9.0 Urine Specific [place] 1.007 1.001-1.035 Urine Protein Negative Negative Urine Ketones 1+ H Negative Urine Blood Trace H Negative /uL Urine Nitrite Negative Negative Urine Bilirubin Negative Negative Urine Urobilinogen Normal Negative mg/dL Urine Leukocyte Esterase Negative Negative /uL Urine RBC 2 0 - 4 /hpf Urine Microscopic WBC 4 0-5 /HPF Urine Squamous Epithelial Cells Few <5 /hpf Urine Bacteria Few H None Seen /hpf Urine Mucus Few None Seen Urine Glucose 4+ H Normal mg/dL Influenza Type A Antigen Negative Negative Influenza Type B Antigen Negative Negative SARS-CoV-2 Antigen (Rapid) Negative NEGATIVE White Blood Count 3.4 L 4.4-10.8 10^3/uL Red Blood Count 5.03 4.0-5.20 10^6/uL Hemoglobin 16.9 H 12.2-16.2 g/dL Hematocrit 48.5 H 36.0-46.0 % Mean Corpuscular Volume 96.4 80.0-100.0 fL Mean Corpuscular Hemoglobin 33.6 H 28.0-32.0 pg Mean Corpuscular Hemoglobin Concent 34.9 32.0-36.0 g/dL Red Cell Distribution Width 12.4 11.8-14.3 % Platelet Count 199 140-450 10^3/uL Mean Platelet Volume 8.5 6.9-10.8 fL Neutrophils (%) (Auto) 37.0-80.0 % Lymphocytes (%) (Auto) 10.0-50.0 % Monocytes (%) (Auto) 0.0-12.0 % Basophils (%) (Auto) 0.0-2.0 % Neutrophils # (Auto) 1.6-8.6 10 ^3/uL Lymphocytes # (Auto) 0.4-5.4 10 ^3/uL Monocytes # (Auto) 0-1.3 10 ^3/uL Differential Total Cells Counted 100.0 100 Neutrophils % (Manual) 61 37.0-80.0 Band Neutrophils % (Manual) 5 Lymphocytes % (Manual) 25 10.0-50.0 Monocytes % (Manual) 9 0-12 Eosinophils % (Manual) 0 0-7 Basophils % (Manual) 0 0.0-2.0 Metamyelocytes % (manual) 0 Myelocytes % (Manual) 0 Promyelocytes % (Manual) 0 Blast Cells % (Manual) 0 Reactive Lymphocytes 0 Platelet Estimate Adequate Anisocytosis (manual) Slight Stomatocytes Few Sodium Level 140 136-145 mmol/L Potassium Level 3.8 3.5-5.1 mmol/L Chloride Level 104 98-107 mmol/L Carbon Dioxide Level 26 20-31 mmol/L Anion Gap 10 5-15 Blood Urea Nitrogen 20 9-23 mg/dL Creatinine 1.00 0.550-1.02 mg/dL Glomerular Filtration Rate Calc 59 >90 mL/min BUN/Creatinine Ratio 20.0 10.0-20.0 Serum Glucose 205 H 74-106 mg/dL Calcium Level 9.8 8.7-10.4 mg/dL Total Bilirubin 0.7 0.2-1.0 mg/dL Aspartate Amino Transferase (AST) 43 H 13-40 U/L Alanine Aminotransferase (ALT) 38 7-40 U/L Alkaline Phosphatase 163 H 46-116 U/L Troponin I High Sensitivity < 3 L </=34 ng/L B-Type Natriuretic Peptide 15.34 0-100 pg/mL Total Protein 7.1 5.7-8.2 g/dL Albumin 4.4 3.2-4.8 g/dL Lipase 39 12-53 U/L Microbiology Date/Time Source Procedure Growth Status 09/06/24 19:00 Blood Blood Culture - Preliminary Resulted CT SCAN ABD PELVIS IMPRESSION: 1. No acute abdominal or pelvic findings. 2. Hepatomegaly and hepatic steatosis. Problems(with codes): (1) Lactic acidosis (2) Elevated liver enzymes (3) Gram negative septicemia (4) Abdominal pain in female (5) Nausea & vomiting (6) Hyperglycemia due to diabetes mellitus Plan/Recommendation Plan IV fluid hydration IV antibiotics currently on IV Zosyn IV PPI Monitor labs Check right upper quadrant ultrasound rule out gallstones Check check x-ray to identify source of bleeding Await final culture reports Nausea and vomiting abdominal pain likely related to Gram-negative septicemia Plan discussed with: Patient, Other (Sitter at bedside) MEGHAN ADAIR MD Sep 07, 2024 21:54
[2024-09-07] MEDS ORDERED: VANCOMYCIN 1.5GM/250ML 250 ML IV ONE (22:30)
[2024-09-07] MEDS ORDERED: LACTATED RINGER'S 1,000 ML IV SCH (23:00)
--- NOTE | 2024-09-07 23:02 | DVH ---
EXAM: US GALLBLADDER HISTORY: elevated liver enzymes abd pain g-septicemia COMPARISON: None TECHNIQUE: Right upper quadrant ultrasound was performed. FINDINGS: Head of the pancreas is unremarkable Liver has increased echogenicity. Portal vein flow is hepatopetal. Liver is enlarged measuring 20 cm in span. Right kidney 10.7 cm in length. It has normal corticomedullary differentiation. Common bile duct tamar sures 3.9 mm in caliber. Small stones are seen in the midportion of the gallbladder. There is pericho lecystic fluid adjacent to the gallbladder. Stones measure on the order of 8.5 mm in size. Gallbladder wall is focally thickened measuring 4.7 mm. IMPRESSION: Enlarged probably fatty infiltrated liver. Evidence for cholecystitis. There also gallstones
[2024-09-07] MEDS: VANCOMYCIN 1GM/250ML KIT 250 ML IV ONE ×2 (23:09)
[2024-09-08] VITALS (50 sets, daily range): BP systolic 82–173; BP diastolic 46–76; PULSE 68–96; RESP 11–22; TEMP 98.2–99.9; O2SAT 80–98
[2024-09-08] MEDS: SODIUM CHLORIDE 0.9% 500 ML IV ONE
[2024-09-08] MEDS: NOREPINEPHRINE 8 MG/250ML KIT 250 ML IV SCH (01:00)
[2024-09-08 04:15] LABS: Alanine Aminotransferase 24 U/L (7-40); Alkaline Phosphatase 85 U/L (46-116); Anion Gap 8 (5-15); Aspartate Aminotransferase 33 U/L (13-40); BUN/Creatinine Ratio 14.7 (10.0-20.0); Blood Urea Nitrogen 14 mg/dL (9-23); Carbon Dioxide 21 mmol/L (20-31); Magnesium 1.7 mg/dL (1.6-2.6); Sodium 140 mmol/L (136-145)
[2024-09-08 04:16] LABS: Bilirubin, Total 0.7 mg/dL (0.2-1.0)
[2024-09-08 04:19] LABS: Albumin 3.1 g/dL (3.2-4.8); Calcium 7.9 mg/dL (8.7-10.4); Chloride 111 mmol/L (98-107); Glucose 228 mg/dL (74-106); Potassium 3.4 mmol/L (3.5-5.1); Total Protein 5.3 g/dL (5.7-8.2)
[2024-09-08 08:35] LABS: Basophils # (auto) 0 10 ^3/uL (0-0.2); Basophils % (auto) 0.2 % (0.0-2.0); Eosinophils # (auto) 0 10 ^3/uL (0-0.8); Hematocrit 37.5 % (36.0-46.0); Hemoglobin 12.9 g/dL (12.2-16.2); Lymphocytes # (auto) 0.7 10 ^3/uL (0.4-5.4); Lymphocytes % (auto) 5.9 % (10.0-50.0); Mean Corpuscular Hgb Conc. 34.5 g/dL (32.0-36.0); Mean Corpuscular Volume 95.7 fL (80.0-100.0); Monocytes # (auto) 0.3 10 ^3/uL (0-1.3); Monocytes % (auto) 2.7 % (0.0-12.0); Neutrophils # (auto) 11.5 10 ^3/uL (1.6-8.6); Neutrophils % (auto) 91.2 % (37.0-80.0); Nucleated Red Blood Cells % 0.1 %; Platelet Count (auto) 98 10^3/uL (140-450); Red Blood Cells 3.91 10^6/uL (4.0-5.20); Red Cell Distribution Width 12.7 % (11.8-14.3); White Blood Cell 12.6 10^3/uL (4.4-10.8)
--- NOTE | 2024-09-08 09:18 | DVHPN2 ---
Subjective Became hypotensive overnight requiring Levophed Was having fever and chills Denies abdominal pain. denies vomiting Blood cultures G- rods Off levophed drip now No hypoxia US: gallstones and possible acute cholecystitis Changes from previous H/P or p: Changes Objective Vitals Vital Signs Date Time Temp Pulse Resp B/P (MAP) Pulse Ox O2 Delivery O2 Flow Rate FiO2 09/08/24 08:00 94 09/08/24 08:00 18 98 Nasal Cannula* 4 36 09/08/24 07:20 111/61 (78) 09/08/24 03:45 98.2 98.2 Intake/Output Intake and Output 09/08/24 07:00 Intake Total 1611.25 ml Balance 1611.25 ml Intake Oral 1400 ml IV Total 211.25 ml # Voids 5 # Bowel Movements 4 General Appearance: Alert, Oriented X3, Cooperative Lungs: Clear to auscultation, Normal air movement Cardiovascular: Regular rate, Normal S1 Abdomen: Normal bowel sounds, Soft, No tenderness Extremities: No edema Medications Current Medications Medications Dose Ordered Sig/Stephanie Route Start Time Stop Time Status Last Admin Dose Admin Pantoprazole Sodium 40 mg DAILY IV 09/07/24 10:00 09/07/24 09:04 40 MG Ondansetron HCl 4 mg Q4HP PRN IV 09/07/24 02:45 Acetaminophen 650 mg Q6HP PRN PO 09/07/24 02:45 09/07/24 18:45 650 MG Morphine Sulfate 2 mg Q6HPRN PRN IV 09/07/24 02:45 Piperacillin Sod/ Tazobactam Sod 100 ml @ 25 mls/hr Q8HR IV 09/07/24 08:30 09/08/24 05:51 25 MLS/HR Vancomycin HCl 0 ml @ 0 mls/hr UD IV 09/07/24 21:45 UNV Norepinephrine Bitartrate 250 ml @ 3.75 mls/hr Q24H IV 09/08/24 00:15 09/08/24 01:00 3.75 MLS/HR Laboratory Results Laboratory Tests 09/08/24 03:42 09/08/24 08:05 Chemistry Test 09/08/24 03:42 Albumin 3.1 g/dL (3.2-4.8) L Calcium Level 7.9 mg/dL (8.7-10.4) L Magnesium Level 1.7 mg/dL (1.6-2.6) Total Protein 5.3 g/dL (5.7-8.2) L LFT Test 09/08/24 03:42 Alanine Aminotransferase (ALT) 24 U/L (7-40) Alkaline Phosphatase 85 U/L (46-116) Aspartate Amino Transferase (AST) 33 U/L (13-40) Total Bilirubin 0.7 mg/dL (0.2-1.0) Urinalysis Test 09/06/24 16:21 Urine Color Light-yellow (Yellow) Urine Clarity Clear (Clear) Urine pH 5.0 (5.0-9.0) Urine Specific [place] 1.007 (1.001-1.035) Urine Protein Negative (Negative) Urine Ketones 1+ (Negative) H Urine Blood Trace /uL (Negative) H Urine Nitrite Negative (Negative) Urine Bilirubin Negative (Negative) Urine Urobilinogen Normal mg/dL (Negative) Urine Leukocyte Esterase Negative /uL (Negative) Urine RBC 2 /hpf (0 - 4) Urine Microscopic WBC 4 /HPF (0-5) Urine Squamous Epithelial Cells Few /hpf (<5) Urine Bacteria Few /hpf (None Seen) H Urine Mucus Few (None Seen) Urine Glucose 4+ mg/dL (Normal) H Blood Gas Results Test 09/07/24 18:55 Arterial Blood pH 7.446 (7.350-7.450) FiO2 % 36.0 Microbiology Microbiology Date/Time Source Procedure Growth Status 09/07/24 09:10 Blood Blood Culture - Preliminary Resulted Assessment/Plan Assessment/Plan Acute metabolic encephalopathy Sepsis UTI Bacteremia with G- rods HTN GERD PLAN: IV Zosyn Advance diet Blood culture g- rods Physical therapy Discussed with family at the bedside 09/08/24: Sepsis with septic shock UTI Bacteremia w G- rods Gallstones Rule out acute cholecystitis Metabolic encephalopathy Reported blood in stools per family, rule out GI bleed Hypokalemia Lactic acidosis Continue IV fluids IV Zosyn & Vanco Levophed prn Rule out GI bleed: Stool occult blood No Lovenox until GI bleed is ruled out Consult GI Consult G. Surgery NPO Protonix IV Replace K+ and Mg Discussed with daughter at the bedside Plan discussed with: Patient, Other My Orders Orders - SHAHRIAR SHAH MD Procedure Category Date Status Time Mechanical Soft Diet DIET 09/07/24 Transmitted Lunch Pt Request For Service PT 09/07/24 Logged 10:42 *Consult CONS 09/07/24 Transmitted / 18:43 Date of Service: Sep 08, 2024 Billing Provider: SHAHRIAR SHAH MD Common Visit Codes: NOT BILLABLE SHAHRIAR SHAH MD Sep 08, 2024 09:18
[2024-09-08] MEDS ORDERED: POTASSIUM CHL 20MEQ/100ML 100 ML IV ONE (09:30)
[2024-09-08] MEDS ORDERED: ENOXAPARIN SOD 30 MG/0.3 ML SYRINGE SC SCH (10:00)
[2024-09-08] MEDS: SODIUM CHLORIDE 0.9% 1,000 ML IV SCH (10:05)
[2024-09-08] MEDS: MAGNESIUM SULFATE 1GM/100ML 100 ML IV SCH (10:20)
[2024-09-08] MEDS: POTASSIUM CHL 20MEQ/50ML 50 ML IV ONE (10:21)
--- NOTE | 2024-09-08 11:13 | ECG ---
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
--- NOTE | 2024-09-08 19:25 | DVHPN2 ---
Progress Note - Dictate Date Seen: Sep 08, 2024 Medical Necessity Reason Pt with a Central, PICC or Fol: No Subjective Patient seen and examined at bedside. Remains on supplemental oxygen Overnight events reviewed. vital signs Vital Sign Date Time Temp Pulse Resp B/P (MAP) Pulse Ox O2 Delivery O2 Flow Rate FiO2 09/08/24 16:00 77 09/08/24 16:00 21 95 Nasal Cannula* 2 28 09/08/24 15:56 98.9 133/71 (91) 98.9 Total Intake and Output 09/07/24 09/07/24 09/08/24 15:00 23:00 07:00 Intake Total 100 ml 1200 ml 311.25 ml Balance 100 ml 1200 ml 311.25 ml medications Current Medications Medications Dose Ordered Sig/Stephanie Route Start Time Stop Time Status Last Admin Dose Admin Pantoprazole Sodium 40 mg DAILY IV 09/07/24 10:00 09/08/24 09:56 40 MG Ondansetron HCl 4 mg Q4HP PRN IV 09/07/24 02:45 Acetaminophen 650 mg Q6HP PRN PO 09/07/24 02:45 09/07/24 18:45 650 MG Morphine Sulfate 2 mg Q6HPRN PRN IV 09/07/24 02:45 Piperacillin Sod/ Tazobactam Sod 100 ml @ 25 mls/hr Q8HR IV 09/07/24 08:30 09/08/24 13:55 25 MLS/HR Vancomycin HCl 0 ml @ 0 mls/hr UD IV 09/07/24 21:45 Sodium Chloride 1,000 ml @ 75 mls/hr [id number] IV 09/08/24 09:15 09/08/24 10:05 75 MLS/HR Vancomycin HCl 250 ml @ 200 mls/hr Q24H IV 09/08/24 20:00 objective Gen.: Patient lying in bed in no apparent distress. On supplemental oxygen. Head: Normocephalic, atraumatic. Eyes: EOMI/PERRLA. Ears: Normal hearing. Normal anatomy. Neck/trachea: Trachea midline, supple. Nose: Normal external anatomy. Mouth: Moist mucous membranes. Chest: Decreased air entry bilaterally. No wheezing or rhonchi. Cardiovascular: Positive S1, positive S2. Regular rate and rhythm. Abdomen: Positive bowel sounds in all 4 quadrants. Soft, non-tender, non- distended. : Deferred. Rectal: Deferred. Skin: Warm, dry. Intact. Extremities: 2+ radial pulses bilaterally. No lower extremity edema. Neuro: Awake, alert, oriented x3. No gross motor or sensory deficits. Cranial nerves II through XII intact. Gait not assessed. laboratory and microbiology Laboratory Tests 09/08/24 08:05 09/08/24 03:42 Test 09/08/24 03:42 Range/Units Serum Glucose 228 H 74-106 mg/dL Assessment/Plan Impression: Acute hypoxic respiratory failure Sepsis due to Bacteremia with GPCs Lactic acidosis Acute gastroenteritis Abdominal pain, acute Febrile Events: Remains on supplemental oxygen, 2 LPM NC Taper O2 as tolerated Upgraded to ICU due to hypotension Started on Levophed for hemodynamic support after 500 ml NS bolus failed Titrate to keep MAP above 65 mmHg/SBP above 90 mmHg Surgery consult for cholecystectomy Continue antibiotics - vancomycin/Zosyn Blood cultures positive for GNRs Monitor hemodynamics closely Monitor renal function. Monitor electrolytes. Supplement as necessary. K, mag supplementation Labs and imaging reviewed. Rest of plan as noted below. Plan: Supplemental oxygen Titrate to keep O2 sats above 92%. Tylenol PRN for fevers. Continue antibiotics Follow up blood cultures - positive for GPC Pain control Avoid oversedation Monitor renal function. Monitor electrolytes. Supplement as necessary. Monitor ins and outs. F/u GI recommendations DVT prophylaxis. Prognosis: Poor given patient's multiple co-morbidities. Condition: Critical Rest of plan per hospitalist and other consultants. A total of 35 minutes of critical care time was spent reviewing the patient record, examining the patient, making a diagnostic and therapeutic plan, discussing this plan with the medical personnel, following up on diagnostic studies and following the patient for clinical stability excluding any and all procedures. At least 50% of this time was spent in direct, [id number] contact. Thank you, FRIEDA Maria, for allowing me to participate in this patient's care. Further recommendations will depend on the patient's clinical course. Please do not hesitate to contact me if you have any questions or concerns. This medical document was created using an electronic medical record system with [employer] system. Although these documentations are being carefully reviewed, there may still be some phonetic and typographical changes. The errors are purely typographical, due to imperfection on the software program, and do not reflect any compromise in the patient's medical care. Plan discussed with: Other (VALERIE Mc) Critical Care Time(min): 35 GREGORIO BLISS MD Sep 08, 2024 19:25
[2024-09-08] MEDS: VANCOMYCIN 1GM/250ML KIT 250 ML IV SCH (20:22)
[2024-09-09] VITALS (8 sets, daily range): BP systolic 105–174; BP diastolic 61–81; PULSE 59–75; RESP 18–20; TEMP 97.9–101.3; O2SAT 91–95
[2024-09-09 06:25] LABS: INR 1.11 (0.9-1.15); Partial Thromboplastin Time 36.5 SEC (24.5-34.5); Prothrombin Time 11.6 sec (9.3-11.8)
[2024-09-09 06:32] LABS: Basophils # (auto) 0 10 ^3/uL (0-0.2); Basophils % (auto) 0.2 % (0.0-2.0); Eosinophils # (auto) 0.1 10 ^3/uL (0-0.8); Hematocrit 37.2 % (36.0-46.0); Hemoglobin 12.8 g/dL (12.2-16.2); Lymphocytes # (auto) 0.8 10 ^3/uL (0.4-5.4); Lymphocytes % (auto) 9.5 % (10.0-50.0); Mean Corpuscular Hemoglobin 32.8 pg (28.0-32.0); Mean Corpuscular Hgb Conc. 34.3 g/dL (32.0-36.0); Mean Corpuscular Volume 95.6 fL (80.0-100.0); Monocytes # (auto) 0.4 10 ^3/uL (0-1.3); Neutrophils # (auto) 7.5 10 ^3/uL (1.6-8.6); Neutrophils % (auto) 84.3 % (37.0-80.0); Platelet Count (auto) 80 10^3/uL (140-450); Red Blood Cells 3.89 10^6/uL (4.0-5.20); Red Cell Distribution Width 12.4 % (11.8-14.3); White Blood Cell 8.9 10^3/uL (4.4-10.8)
[2024-09-09 06:34] LABS: Cholesterol 65 mg/dL (< 200); LDL Cholesterol 16 mg/dL (< 100)
[2024-09-09 06:41] LABS: Lipase 31 U/L (12-53)
[2024-09-09 06:43] LABS: Chloride 108 mmol/L (98-107)
[2024-09-09 06:51] LABS: Alanine Aminotransferase 23 U/L (7-40); Alkaline Phosphatase 88 U/L (46-116); Anion Gap 6 (5-15); Aspartate Aminotransferase 29 U/L (13-40); BUN/Creatinine Ratio 15.5 (10.0-20.0); Bilirubin, Total 0.7 mg/dL (0.2-1.0); Blood Urea Nitrogen 13 mg/dL (9-23); Calcium 8.3 mg/dL (8.7-10.4); Carbon Dioxide 23 mmol/L (20-31); Glucose 199 mg/dL (74-106); HDL Cholesterol < 5 mg/dL (40-59); Magnesium 2.1 mg/dL (1.6-2.6); Potassium 3.6 mmol/L (3.5-5.1); Sodium 137 mmol/L (136-145); Total Protein 5.3 g/dL (5.7-8.2); Triglycerides 200 mg/dL (< 150)
--- NOTE | 2024-09-09 07:44 | DVHSR ---
APPROVED REPORT EXAM: Two-dimensional and M-mode echocardiogram with Doppler and color Doppler. Blood Pressure: 111/[address] ORDERS RISK FACTORS Height: 63, Weight: 154 DIMENSIONS LVDd4.4 (3.8-5.7cm)LA (2D)3.9 (1.9-4.0cm)Aortic Root3.3 (2.0-3.7cm) LVDs3.0 (2.5-4.0cm)LA (MM) (1.9-4.0cm)Aortic Cusp Exc2.0 (1.5-2.0cm) EF (%) 60.0 (55-70%)Rt. Atrium3.4 (1.9-4.0cm)Asc. Aorta2.4 cm IVSd1.1 (0.7-1.1cm)RV (D) (1.8-2.4cm) PWd1.3 (0.7-1.1cm) Mitral Valve MitralMitral Stenosis E wavem/sMV Mean GR.5mmHg A wavem/sMV Peak GR.93mmHg E/A ratio0.02D MVAcm2 Aortic Valve Aortic ValveAortic Stenosis V11.51m/Jeanie Mean GR.6mmHg V21.74m/Jeanie Peak GR.12mmHg LVOT Diameter2.0 (1.8-2.4cm)Doppler AVA2.72cm2 Pulmonic Valve V21.14m/s Tricuspid Valve TR Velocity2.91m/s [id number] Conclusion lvef 65 % by visual estiamte low normal function mild LVH normal RV function left atrium enlarged no severe valve abnormaliites noted
--- NOTE | 2024-09-09 10:33 | DVH ---
EXAM: XY CHEST XRAY 1 VIEW HISTORY: INCREASED WOB COMPARISON: Upper images of CT scan of the abdomen dated 09/06/2024. TECHNIQUE: Portable upright AP view of the chest was performed. FINDINGS: No pneumothorax, consolidative infiltrates, or pulmonary edema. Mild bilateral lower lobe i nfiltrates seen on prior CT scan are not appreciated on the current study. The heart is mildly enlarg ed. IMPRESSION: Mild cardiomegaly without evidence of acute intrathoracic process.
--- NOTE | 2024-09-09 10:39 | DVHPN2 ---
Subjective She is still having fever No abdominal pain She is still having some cough and she is on oxygen Changes from previous H/P or p: Changes Objective Vitals Vital Signs Date Time Temp Pulse Resp B/P (MAP) Pulse Ox O2 Delivery O2 Flow Rate FiO2 09/09/24 08:55 97.9 61 18 136/71 (92) 95 97.9 09/08/24 20:00 Nasal Cannula* 4 36 Intake/Output Intake and Output 09/09/24 07:00 Intake Total 1500 ml Output Total 150 ml Balance 1350 ml Intake Oral 0 ml IV Total 1500 ml Output Urine Total 150 ml # Voids 2 General Appearance: Alert, Oriented X3, Cooperative Lungs: Clear to auscultation, Normal air movement Cardiovascular: Regular rate, Normal S1 Abdomen: Normal bowel sounds, Soft, No tenderness Extremities: No edema Medications Current Medications Medications Dose Ordered Sig/Stephanie Route Start Time Stop Time Status Last Admin Dose Admin Pantoprazole Sodium 40 mg DAILY IV 09/07/24 10:00 09/08/24 09:56 40 MG Ondansetron HCl 4 mg Q4HP PRN IV 09/07/24 02:45 Acetaminophen 650 mg Q6HP PRN PO 09/07/24 02:45 09/09/24 04:55 650 MG Morphine Sulfate 2 mg Q6HPRN PRN IV 09/07/24 02:45 Piperacillin Sod/ Tazobactam Sod 100 ml @ 25 mls/hr Q8HR IV 09/07/24 08:30 09/09/24 05:54 25 MLS/HR Vancomycin HCl 0 ml @ 0 mls/hr UD IV 09/07/24 21:45 Sodium Chloride 1,000 ml @ 75 mls/hr [id number] IV 09/08/24 09:15 09/09/24 05:54 75 MLS/HR Vancomycin HCl 250 ml @ 200 mls/hr Q24H IV 09/08/24 20:00 09/08/24 20:22 200 MLS/HR Laboratory Results Laboratory Tests 09/09/24 05:39 Chemistry Test 09/09/24 05:39 Albumin 3.0 g/dL (3.2-4.8) L Calcium Level 8.3 mg/dL (8.7-10.4) L Magnesium Level 2.1 mg/dL (1.6-2.6) Total Protein 5.3 g/dL (5.7-8.2) L Coagulation Test 09/09/24 05:39 Prothrombin Time 11.6 sec (9.3-11.8) Prothrombin Time INR 1.11 (0.9-1.15) Activated Partial Thromboplast Time 36.5 SEC (24.5-34.5) H Lipid panel Test 09/09/24 05:39 Cholesterol Level 65 mg/dL (< 200) HDL Cholesterol < 5 mg/dL (40-59) L Lipase 31 U/L (12-53) Triglycerides Level 200 mg/dL (< 150) H LFT Test 09/09/24 05:39 Alanine Aminotransferase (ALT) 23 U/L (7-40) Alkaline Phosphatase 88 U/L (46-116) Aspartate Amino Transferase (AST) 29 U/L (13-40) Total Bilirubin 0.7 mg/dL (0.2-1.0) Urinalysis Test 09/06/24 16:21 Urine Color Light-yellow (Yellow) Urine Clarity Clear (Clear) Urine pH 5.0 (5.0-9.0) Urine Specific [place] 1.007 (1.001-1.035) Urine Protein Negative (Negative) Urine Ketones 1+ (Negative) H Urine Blood Trace /uL (Negative) H Urine Nitrite Negative (Negative) Urine Bilirubin Negative (Negative) Urine Urobilinogen Normal mg/dL (Negative) Urine Leukocyte Esterase Negative /uL (Negative) Urine RBC 2 /hpf (0 - 4) Urine Microscopic WBC 4 /HPF (0-5) Urine Squamous Epithelial Cells Few /hpf (<5) Urine Bacteria Few /hpf (None Seen) H Urine Mucus Few (None Seen) Urine Glucose 4+ mg/dL (Normal) H Microbiology Microbiology Date/Time Source Procedure Growth Status 09/07/24 09:10 Blood Blood Culture - Preliminary Resulted Assessment/Plan Assessment/Plan Acute metabolic encephalopathy Sepsis UTI Bacteremia with G- rods HTN GERD PLAN: IV Zosyn Advance diet Blood culture g- rods Physical therapy Discussed with family at the bedside 09/08/24: Sepsis with septic shock UTI Bacteremia w G- rods Gallstones Rule out acute cholecystitis Metabolic encephalopathy Reported blood in stools per family, rule out GI bleed Hypokalemia Lactic acidosis Continue IV fluids IV Zosyn & Vanco Levophed prn Rule out GI bleed: Stool occult blood No Lovenox until GI bleed is ruled out Consult GI Consult G. Surgery NPO Protonix IV Replace K+ and Mg Discussed with daughter at the bedside 09/09/2024: Possible acute cholecystitis: Get a HIDA scan Fever/bacteremia/sepsis: Zosyn and vancomycin Sepsis: IV fluids Hypokalemia: Replace as needed Thrombocytopenia due to sepsis Bacteremia with Gram-negative rods: Sensitivity is still pending NPO for HIDA scan Oxygen as needed Incentive spirometry Plan discussed with: Patient, Daughter My Orders Orders - SHAHRIAR SHAH MD Procedure Category Date Status Time Nm Hida Scan NM 09/09/24 Logged 08:55 Date of Service: Sep 09, 2024 Billing Provider: SHAHRIAR SHAH MD Common Visit Codes: [id number] INP/OBS CARE(HIGH) SHAHRIAR SHAH MD Sep 09, 2024 10:39
--- NOTE | 2024-09-09 12:10 | DVH ---
Procedure: NM NM HIDA SCAN Exam Date: 09/09/2024 09:22 AM Clinical History: acute denise Comparison Study: 09/07/2024 Nuclear Medicine Hepatobiliary Scan. Technique: Following the intravenous administration of 4.6 mCi of technetium 99m labeled Choletec multiple plana r abdominal planar images were obtained in anterior projection in 5 minute intervals for 60 minutes . Right lateral images were obtained at 60 minutes after injection. Findings: The liver appears grossly normal in size. There is no abnormal persistence of the cardiac or blood po ol activity. There is prompt visualization of the gallbladder and excretion of activity into the smal l bowel. Impression: Unremarkable hepatobiliary study without evidence of acute cholecystitis.
--- NOTE | 2024-09-09 14:40 | DVHINCON2 ---
Date of service: Sep 09, 2024 Family History: FH: cancer of trachea, bronchus and lung G8 FATHER FHx: cancer G8 MOTHER Allergies: Coded Allergies: NO KNOWN ALLERGIES (Unverified , 09/06/24) Home Meds Reported Medications Nitrofurantoin Monohyd Macro (Nitrofurantoin Monohydrat) 100 Mg Cap, 1 CAP PO BID 09/07/24 Metoprolol Tartrate (LOPRESSOR TABLET) 50 Mg Tb, 1 TAB PO BID 09/07/24 Pantoprazole Sodium Sesquihydr (Pantoprazole Sodium) 40 Mg Tab, 1 TAB PO DAILY 09/07/24 Losartan Potassium (Losartan Potassium) 25 Mg Tab, 1 TAB PO DAILY 09/07/24 Current Medications Current Medications Medications (Trade) Dose Ordered Sig/Stephanie Route PRN Reason Start Time Stop Time Status Last Admin Vancomycin HCl 250 ml @ 200 mls/hr Q24H IV 09/08/24 20:00 09/08/24 20:22 Vital Signs Vital Signs Date Time Temp Pulse Resp B/P (MAP) Pulse Ox O2 Delivery O2 Flow Rate FiO2 09/09/24 12:53 98.0 65 20 154/71 (98) 93 98.0 09/08/24 20:00 Nasal Cannula* 4 36 Labs/Diagnostic Data Labs Test 09/09/24 05:39 09/08/24 09:00 09/07/24 18:55 09/07/24 01:20 Range/Units White Blood Count 8.9 # 4.4-10.8 10^3/uL Red Blood Count 3.89 L 4.0-5.20 10^6/uL Hemoglobin 12.8 12.2-16.2 g/dL Hematocrit 37.2 36.0-46.0 % Mean Corpuscular Volume 95.6 80.0-100.0 fL Mean Corpuscular Hemoglobin 32.8 H 28.0-32.0 pg Mean Corpuscular Hemoglobin Concent 34.3 32.0-36.0 g/dL Red Cell Distribution Width 12.4 11.8-14.3 % Platelet Count 80 L 140-450 10^3/uL Mean Platelet Volume 9.4 6.9-10.8 fL Neutrophils (%) (Auto) 84.3 H 37.0-80.0 % Lymphocytes (%) (Auto) 9.5 L 10.0-50.0 % Monocytes (%) (Auto) 5.0 0.0-12.0 % Eosinophils (%) (Auto) 1.0 0.0-7.0 % Basophils (%) (Auto) 0.2 0.0-2.0 % Neutrophils # (Auto) 7.5 1.6-8.6 10 ^3/uL Lymphocytes # (Auto) 0.8 0.4-5.4 10 ^3/uL Monocytes # (Auto) 0.4 0-1.3 10 ^3/uL Eosinophils # (Auto) 0.1 0-0.8 10 ^3/uL Basophils # (Auto) 0 0-0.2 10 ^3/uL Nucleated Red Blood Cells 0.0 % Prothrombin Time 11.6 9.3-11.8 sec Prothrombin Time INR 1.11 0.9-1.15 Activated Partial Thromboplast Time 36.5 H 24.5-34.5 SEC Sodium Level 137 136-145 mmol/L Potassium Level 3.6 3.5-5.1 mmol/L Chloride Level 108 H 98-107 mmol/L Carbon Dioxide Level 23 20-31 mmol/L Anion Gap 6 5-15 Blood Urea Nitrogen 13 9-23 mg/dL Creatinine 0.84 0.550-1.02 mg/dL Glomerular Filtration Rate Calc 73 >90 mL/min BUN/Creatinine Ratio 15.5 10.0-20.0 Serum Glucose 199 H 74-106 mg/dL Calcium Level 8.3 L 8.7-10.4 mg/dL Magnesium Level 2.1 1.6-2.6 mg/dL Total Bilirubin 0.7 0.2-1.0 mg/dL Aspartate Amino Transferase (AST) 29 13-40 U/L Alanine Aminotransferase (ALT) 23 7-40 U/L Alkaline Phosphatase 88 46-116 U/L Total Protein 5.3 L 5.7-8.2 g/dL Albumin 3.0 L 3.2-4.8 g/dL Triglycerides Level 200 H < 150 mg/dL Cholesterol Level 65 < 200 mg/dL LDL Cholesterol 16 < 100 mg/dL HDL Cholesterol < 5 L 40-59 mg/dL Lipase 31 12-53 U/L Stool Occult Blood Negative Negative Stool Occult Blood Sample #3 Negative Blood Gas Specimen Type Arterial Blood Gas Sample Site Right radial Blood Gas Patient Temperature 37.0 Arterial Blood Date Drawn [id number] Arterial Blood pH 7.446 7.350-7.450 Arterial Blood Partial Pressure CO2 22.1 L 32.0-45.0 mmHg Arterial Blood Partial Pressure O2 68.2 L 83.0-108.0 mmHg Arterial Blood HCO3 14.9 L 21.0-28.0 mmol/L Arterial Blood Oxygen Saturation 94.7 94.0-98.0 % Arterial Blood Base Excess -6.8 L -2.0-3.0 mmol/L Arterial Blood Oxyhemoglobin 94.1 94.0-98.0 % Arterial Blood Carboxyhemoglobin 0.2 L 0.5-1.5 % Arterial Blood Methemoglobin 0.4 0.0-1.5 % Jerald Test Modified Blood Gas Total Hemoglobin 14.90 12.0-16.0 g/dL Blood Gas Liter Flow 4.00 Blood Gas Modality Nasal cannula Blood Gas Spontaneous Rate 22 FiO2 % 36.0 Specimen Drawn By [facility] rt Lactic Acid Level 6.4 *H 0.4-2.0 mmol/L Test 09/06/24 16:21 09/06/24 15:56 Range/Units Urine Color Light-yellow Yellow Urine Clarity Clear Clear Urine pH 5.0 5.0-9.0 Urine Specific [place] 1.007 1.001-1.035 Urine Protein Negative Negative Urine Ketones 1+ H Negative Urine Blood Trace H Negative /uL Urine Nitrite Negative Negative Urine Bilirubin Negative Negative Urine Urobilinogen Normal Negative mg/dL Urine Leukocyte Esterase Negative Negative /uL Urine RBC 2 0 - 4 /hpf Urine Microscopic WBC 4 0-5 /HPF Urine Squamous Epithelial Cells Few <5 /hpf Urine Bacteria Few H None Seen /hpf Urine Mucus Few None Seen Urine Glucose 4+ H Normal mg/dL Influenza Type A Antigen Negative Negative Influenza Type B Antigen Negative Negative SARS-CoV-2 Antigen (Rapid) Negative NEGATIVE Differential Total Cells Counted 100.0 100 Neutrophils % (Manual) 61 37.0-80.0 Band Neutrophils % (Manual) 5 Lymphocytes % (Manual) 25 10.0-50.0 Monocytes % (Manual) 9 0-12 Eosinophils % (Manual) 0 0-7 Basophils % (Manual) 0 0.0-2.0 Metamyelocytes % (manual) 0 Myelocytes % (Manual) 0 Promyelocytes % (Manual) 0 Blast Cells % (Manual) 0 Reactive Lymphocytes 0 Platelet Estimate Adequate Anisocytosis (manual) Slight Stomatocytes Few Troponin I High Sensitivity < 3 L </=34 ng/L B-Type Natriuretic Peptide 15.34 0-100 pg/mL Microbiology Date/Time Source Procedure Growth Status 09/07/24 09:10 Blood Blood Culture - Final Escherichia coli Complete Assessment [id number] R/O AC CHOLECYSTITIS RESOLVING BILIARY COLIC LACTATE HIGH SOURCE OF SEPSIS NOT CONFIRMED PER CT CONTINUE CLOSE OBSERVATION REPEAT LACTATE CONSIDER EMERGENT SURGERY BASED ON ONGOING EVAL Plan discussed with: Other SONIA ADAIR MD Sep 09, 2024 14:39
--- NOTE | 2024-09-09 14:48 | DVHINCON2 ---
DATE OF CONSULTATION: 09/09/2024 HISTORY OF PRESENT ILLNESS: This patient is 74 years old, coming in with abdominal pain, now not complaining of abdominal pain and she has had nausea and vomiting and she feels dehydrated. PAST MEDICAL HISTORY: Hypertension and GERD. PAST SURGICAL HISTORY: Not available. PHYSICAL EXAMINATION: VITAL SIGNS: Afebrile, stable signs. HEENT: With no evidence of pallor, cyanosis, or jaundice. NECK: Supple, nontender with no thyromegaly, lymphadenopathy. CHEST AND LUNGS: Clear. HEART: Within normal limits. ABDOMEN: Soft, minimally tender. No rebound. EXTREMITIES: Unremarkable. NEUROLOGIC: Intact. DIAGNOSTIC DATA: White cell count was elevated on 09/08/2024 and then came back to 8.9 and lactate levels were also elevated at 6.4. Source of sepsis is not clear. Liver enzymes are within normal limits. Lipase is 31. Gallbladder ultrasound shows possibility of cholecystitis, gallstones. Abdominal CT scan shows hepatomegaly, no acute process ongoing. HIDA scan is negative. CLINICAL IMPRESSION: Rule out acute cholecystitis, resolving cholecystitis, biliary colic. PLAN: At this point, she needs close observation and Cardiology clearance in case surgery is considered, family to decide, the benefits and risks discussed, and consider laparoscopic, possible open cholecystectomy based upon ongoing evaluation. MD ADELA Santiago/HAMLET TID: [id number] RECEIPT: [id number] cc: Mariah Em MD
[2024-09-09 16:41] LABS: Lactic Acid w/Reflex 3.2 mmol/L (0.4-2.0)
--- NOTE | 2024-09-09 21:09 | DVHPN2 ---
Progress Note - Dictate Date Seen: Sep 09, 2024 Medical Necessity Reason Pt with a Central, PICC or Fol: No Subjective Patient seen and examined at bedside. Breathing on room air. Overnight events reviewed. vital signs Vital Sign Date Time Temp Pulse Resp B/P (MAP) Pulse Ox O2 Delivery O2 Flow Rate FiO2 09/09/24 16:51 99.8 68 20 105/66 (79) 91 99.8 09/09/24 08:00 Room Air* 0 N/A Nasal Cannula* Total Intake and Output 09/08/24 09/08/24 09/09/24 15:00 23:00 07:00 Intake Total 650 ml 250 ml 600 ml Output Total 150 ml Balance 650 ml 250 ml 450 ml medications Current Medications Medications Dose Ordered Sig/Stephanie Route Start Time Stop Time Status Last Admin Dose Admin Pantoprazole Sodium 40 mg DAILY IV 09/07/24 10:00 09/09/24 11:41 40 MG Ondansetron HCl 4 mg Q4HP PRN IV 09/07/24 02:45 Acetaminophen 650 mg Q6HP PRN PO 09/07/24 02:45 09/09/24 04:55 650 MG Morphine Sulfate 2 mg Q6HPRN PRN IV 09/07/24 02:45 Piperacillin Sod/ Tazobactam Sod 100 ml @ 25 mls/hr Q8HR IV 09/07/24 08:30 09/09/24 15:17 25 MLS/HR Vancomycin HCl 0 ml @ 0 mls/hr UD IV 09/07/24 21:45 Sodium Chloride 1,000 ml @ 75 mls/hr [id number] IV 09/08/24 09:15 09/09/24 05:54 75 MLS/HR Vancomycin HCl 250 ml @ 200 mls/hr Q24H IV 09/08/24 20:00 09/09/24 19:52 200 MLS/HR objective Gen.: Patient lying in bed in no apparent distress. On room air Head: Normocephalic, atraumatic. Eyes: EOMI/PERRLA. Ears: Normal hearing. Normal anatomy. Neck/trachea: Trachea midline, supple. Nose: Normal external anatomy. Mouth: Moist mucous membranes. Chest: Decreased air entry bilaterally. No wheezing or rhonchi. Cardiovascular: Positive S1, positive S2. Regular rate and rhythm. Abdomen: Positive bowel sounds in all 4 quadrants. Soft, non-tender, non- distended. : Deferred. Rectal: Deferred. Skin: Warm, dry. Intact. Extremities: 2+ radial pulses bilaterally. No lower extremity edema. Neuro: Awake, alert, oriented x3. No gross motor or sensory deficits. Cranial nerves II through XII intact. Gait not assessed. laboratory and microbiology Laboratory Tests 09/09/24 05:39 Test 09/09/24 05:39 Range/Units Serum Glucose 199 H 74-106 mg/dL Assessment/Plan Impression: Acute hypoxic respiratory failure Sepsis due to Bacteremia with GPCs Lactic acidosis Acute gastroenteritis Abdominal pain, acute Febrile Events: On room air Supplemental oxygen PRN Off Levophed, hemodynamically stable. Surgery consult for cholecystectomy Complete antibiotics Blood cultures positive for GNRs Protonix for GI prophylaxis IV fluids at 75 ml/hr. Monitor renal function. Monitor electrolytes. Supplement as necessary. Labs and imaging reviewed. Rest of plan as noted below. Plan: Supplemental oxygen PRN Titrate to keep O2 sats above 92%. Tylenol PRN for fevers Continue antibiotics Follow up blood cultures - positive for GPC Pressors if necessary for hemodynamic support Titrate to keep MAP above 65 mmHg/SBP above 90 mmHg Pain control Avoid oversedation Monitor renal function. Monitor electrolytes. Supplement as necessary. Monitor ins and outs. F/u GI recommendations DVT prophylaxis. Prognosis: Poor given patient's multiple co-morbidities. Rest of plan per hospitalist and other consultants. Thank you, FRIEDA Maria, for allowing me to participate in this patient's care. Further recommendations will depend on the patient's clinical course. Please do not hesitate to contact me if you have any questions or concerns. This medical document was created using an electronic medical record system with [employer] dictation system. Although these documentations are being carefully reviewed, there may still be some phonetic and typographical changes. The errors are purely typographical, due to imperfection on the software program, and do not reflect any compromise in the patient's medical care. Dietary Evaluation Review Comments: 1. Recommend diet progression to Low Fat diet if cholecystectomy needed 2. Encourage good PO intakes >75% of meals 3. Pt not to go >5 days NPO/CL diet only -> Currently Day 2 Expected Outcomes/Goals: Diet progression, improved GI sx. Plan discussed with: Patient, Other (RN GREGORIO Hamilton MD Sep 09, 2024 21:09
--- NOTE | 2024-09-09 21:36 | DVHPN2 ---
Progress Note - Dictate Date Seen: Sep 09, 2024 Medical Necessity Reason Pt with a Central, PICC or Fol: No Subjective Patient seen at bedside resting comfortably There was no further nausea or vomiting Abdominal pain has improved vital signs Vital Sign Date Time Temp Pulse Resp B/P (MAP) Pulse Ox O2 Delivery O2 Flow Rate FiO2 09/09/24 16:51 99.8 68 20 105/66 (79) 91 99.8 09/09/24 08:00 Room Air* 0 N/A Nasal Cannula* Total Intake and Output 09/08/24 09/08/24 09/09/24 15:00 23:00 07:00 Intake Total 650 ml 250 ml 600 ml Output Total 150 ml Balance 650 ml 250 ml 450 ml medications Current Medications Medications Dose Ordered Sig/Stephanie Route Start Time Stop Time Status Last Admin Dose Admin Pantoprazole Sodium 40 mg DAILY IV 09/07/24 10:00 09/09/24 11:41 40 MG Ondansetron HCl 4 mg Q4HP PRN IV 09/07/24 02:45 Acetaminophen 650 mg Q6HP PRN PO 09/07/24 02:45 09/09/24 04:55 650 MG Morphine Sulfate 2 mg Q6HPRN PRN IV 09/07/24 02:45 Piperacillin Sod/ Tazobactam Sod 100 ml @ 25 mls/hr Q8HR IV 09/07/24 08:30 09/09/24 15:17 25 MLS/HR Vancomycin HCl 0 ml @ 0 mls/hr UD IV 09/07/24 21:45 Sodium Chloride 1,000 ml @ 75 mls/hr [id number] IV 09/08/24 09:15 09/09/24 05:54 75 MLS/HR Vancomycin HCl 250 ml @ 200 mls/hr Q24H IV 09/08/24 20:00 09/09/24 19:52 200 MLS/HR objective Gen: 74-year-old female in no distress; sleeping Skin: Warm, dry, normal color and texture, no rash. HEENT: Normocephalic atraumatic, mucous membranes moist and pink. Neck: Cervical and supraclavicular nodes normal without enlargement, trachea is midline, thyroid gland is normal without masses. Pulmonary: Clear to auscultation and percussion bilaterally. CVS S1S2 rrr Abdomen: Soft, nontender, nondistended, bowel sounds present all 4 quadrants, no guarding, no rigidity, no organomegaly. Extremities: No cyanosis, clubbing, no edema Neuro: Cranial nerves II through XII grossly intact, normal affect and speech, no focal motor deficits. laboratory and microbiology Laboratory Tests 09/09/24 05:39 Test 09/09/24 05:39 Range/Units Serum Glucose 199 H 74-106 mg/dL Problems(with codes): (1) Cholelithiasis and cholecystitis without obstruction (2) Abdominal pain in female (3) Elevated liver enzymes (4) Nausea & vomiting (5) Gram negative septicemia (6) Lactic acidosis (7) Hyperglycemia due to diabetes mellitus (8) Sepsis Prognosis Plan Continue IV antibiotics Blood cultures have shown E coli septicemia No clear-cut source identified Patient did gallstones with evidence of gallbladder wall thickening Her HIDA scan is however negative and liver enzymes are normal Surgical consult is appreciated Continue current conservative management at this time Family and patient are considering cholecystectomy electively Dietary Evaluation Review Comments: 1. Recommend diet progression to Low Fat diet if cholecystectomy needed 2. Encourage good PO intakes >75% of meals 3. Pt not to go >5 days NPO/CL diet only -> Currently Day 2 Expected Outcomes/Goals: Diet progression, improved GI sx. Plan discussed with: Patient, Other (Dr Zach Mattson) MEGHAN MATTSON MD Sep 09, 2024 21:36
[2024-09-09] MEDS: amLODIPine BESYLATE 5 MG TAB PO ONE (21:41)
[2024-09-10] VITALS (9 sets, daily range): BP systolic 130–169; BP diastolic 63–77; PULSE 62–71; RESP 16–19; TEMP 98–99.1; O2SAT 90–96
[2024-09-10 06:35] LABS: Basophils # (auto) 0 10 ^3/uL (0-0.2); Basophils % (auto) 0.4 % (0.0-2.0); Eosinophils # (auto) 0.1 10 ^3/uL (0-0.8); Eosinophils % (auto) 1.1 % (0.0-7.0); Hematocrit 37.3 % (36.0-46.0); Hemoglobin 13.1 g/dL (12.2-16.2); Lymphocytes # (auto) 1.2 10 ^3/uL (0.4-5.4); Lymphocytes % (auto) 16.4 % (10.0-50.0); Mean Corpuscular Hemoglobin 33.4 pg (28.0-32.0); Mean Corpuscular Hgb Conc. 35.2 g/dL (32.0-36.0); Mean Corpuscular Volume 94.9 fL (80.0-100.0); Monocytes # (auto) 0.5 10 ^3/uL (0-1.3); Monocytes % (auto) 6.7 % (0.0-12.0); Neutrophils # (auto) 5.3 10 ^3/uL (1.6-8.6); Neutrophils % (auto) 75.4 % (37.0-80.0); Nucleated Red Blood Cells % 0.1 %; Platelet Count (auto) 91 10^3/uL (140-450); Red Blood Cells 3.93 10^6/uL (4.0-5.20); Red Cell Distribution Width 12.9 % (11.8-14.3); White Blood Cell 7.1 10^3/uL (4.4-10.8)
[2024-09-10 06:51] LABS: Alanine Aminotransferase 23 U/L (7-40); Albumin 3.2 g/dL (3.2-4.8); Alkaline Phosphatase 87 U/L (46-116); Anion Gap 6 (5-15); Aspartate Aminotransferase 31 U/L (13-40); BUN/Creatinine Ratio 12.6 (10.0-20.0); Bilirubin, Total 0.9 mg/dL (0.2-1.0); Blood Urea Nitrogen 11 mg/dL (9-23); Carbon Dioxide 25 mmol/L (20-31); Chloride 107 mmol/L (98-107); Magnesium 1.9 mg/dL (1.6-2.6); Sodium 138 mmol/L (136-145); Total Protein 5.8 g/dL (5.7-8.2)
[2024-09-10 06:52] LABS: Calcium 8.7 mg/dL (8.7-10.4); Glucose 215 mg/dL (74-106); Lipase 53 U/L (12-53); Potassium 3.3 mmol/L (3.5-5.1)
--- NOTE | 2024-09-10 09:44 | DVHPN2 ---
Progress Note Date Seen: Sep 10, 2024 Medical Necessity Reason Pt with a Central, PICC or Fol: No Objective vital signs Vital Sign Date Time Temp Pulse Resp B/P (MAP) Pulse Ox O2 Delivery O2 Flow Rate FiO2 09/10/24 08:54 99.1 67 18 153/70 (97) 90 99.1 09/09/24 20:00 Room Air* 0 21 Total Intake and Output 09/09/24 09/09/24 09/10/24 15:00 23:00 07:00 Intake Total 550 ml 500 ml Balance 550 ml 500 ml medications Current Medications Medications Dose Ordered Sig/Stephanie Route Start Time Stop Time Status Last Admin Dose Admin Pantoprazole Sodium 40 mg DAILY IV 09/07/24 10:00 09/09/24 11:41 40 MG Ondansetron HCl 4 mg Q4HP PRN IV 09/07/24 02:45 Acetaminophen 650 mg Q6HP PRN PO 09/07/24 02:45 09/09/24 04:55 650 MG Morphine Sulfate 2 mg Q6HPRN PRN IV 09/07/24 02:45 Piperacillin Sod/ Tazobactam Sod 100 ml @ 25 mls/hr Q8HR IV 09/07/24 08:30 09/10/24 06:28 25 MLS/HR Vancomycin HCl 0 ml @ 0 mls/hr UD IV 09/07/24 21:45 Sodium Chloride 1,000 ml @ 75 mls/hr [id number] IV 09/08/24 09:15 09/09/24 05:54 75 MLS/HR Vancomycin HCl 250 ml @ 200 mls/hr Q24H IV 09/08/24 20:00 09/09/24 19:52 200 MLS/HR laboratory and microbiology Laboratory Tests 09/10/24 05:51 Test 09/10/24 05:51 Range/Units Serum Glucose 215 H 74-106 mg/dL Microbiology Date/Time Source Procedure Growth Status 09/07/24 09:10 Blood Blood Culture - Final Escherichia coli Complete Problem List/Assessment/Plan Problem List/Assessment/Plan AFEBRILE VSS ABD SOFT NON TENDER SEPSIS RESOLVING CONSIDER GB SURGERY BASED ON ONGOING EVAL Plan discussed with: Patient Dietary Evaluation Review Comments: 1. Recommend diet progression to Low Fat diet if cholecystectomy needed 2. Encourage good PO intakes >75% of meals 3. Pt not to go >5 days NPO/CL diet only -> Currently Day 2 Expected Outcomes/Goals: Diet progression, improved GI sx. SONIA ADAIR MD Sep 10, 2024 09:44
[2024-09-10] MEDS: POTASSIUM CHL 20 Meq TABLET PO ONE (10:26)
--- NOTE | 2024-09-10 12:18 | MEDREC ---
[facility] ASP Intervention Section I [facility] ASP Intervention: Deescalate AB based on CS (PLEASE CONSIDER DE-ESCALATION BASED ON CULTURE RESULTS ) MART JESSICA PHARMACIST Sep 10, 2024 12:18
--- NOTE | 2024-09-10 15:33 | DVHPN2 ---
Subjective No abdominal pain No nausea no vomiting No fever The HIDA scan was negative Changes from previous H/P or p: Changes Objective Vitals Vital Signs Date Time Temp Pulse Resp B/P (MAP) Pulse Ox O2 Delivery O2 Flow Rate FiO2 09/10/24 12:53 98.2 66 18 152/77 (102) 90 98.2 09/10/24 08:10 Room Air* 0 21 Intake/Output Intake and Output 09/10/24 07:00 Intake Total 1050 ml Balance 1050 ml Intake Oral 400 ml IV Total 650 ml # Voids 7 General Appearance: Alert, Oriented X3, Cooperative Lungs: Clear to auscultation, Normal air movement Cardiovascular: Regular rate, Normal S1 Abdomen: Normal bowel sounds, Soft, No tenderness Extremities: No edema Medications Current Medications Medications Dose Ordered Sig/Stephanie Route Start Time Stop Time Status Last Admin Dose Admin Pantoprazole Sodium 40 mg DAILY IV 09/07/24 10:00 09/10/24 10:38 40 MG Ondansetron HCl 4 mg Q4HP PRN IV 09/07/24 02:45 Acetaminophen 650 mg Q6HP PRN PO 09/07/24 02:45 09/09/24 04:55 650 MG Morphine Sulfate 2 mg Q6HPRN PRN IV 09/07/24 02:45 Piperacillin Sod/ Tazobactam Sod 100 ml @ 25 mls/hr Q8HR IV 09/07/24 08:30 09/10/24 06:28 25 MLS/HR Vancomycin HCl 0 ml @ 0 mls/hr UD IV 09/07/24 21:45 Sodium Chloride 1,000 ml @ 75 mls/hr [id number] IV 09/08/24 09:15 09/09/24 05:54 75 MLS/HR Vancomycin HCl 250 ml @ 200 mls/hr Q24H IV 09/08/24 20:00 09/09/24 19:52 200 MLS/HR Laboratory Results Laboratory Tests 09/10/24 05:51 Chemistry Test 09/10/24 05:51 Albumin 3.2 g/dL (3.2-4.8) Calcium Level 8.7 mg/dL (8.7-10.4) Magnesium Level 1.9 mg/dL (1.6-2.6) Total Protein 5.8 g/dL (5.7-8.2) Lipid panel Test 09/10/24 05:51 Lipase 53 U/L (12-53) LFT Test 09/10/24 05:51 Alanine Aminotransferase (ALT) 23 U/L (7-40) Alkaline Phosphatase 87 U/L (46-116) Aspartate Amino Transferase (AST) 31 U/L (13-40) Total Bilirubin 0.9 mg/dL (0.2-1.0) Urinalysis Test 09/06/24 16:21 Urine Color Light-yellow (Yellow) Urine Clarity Clear (Clear) Urine pH 5.0 (5.0-9.0) Urine Specific [place] 1.007 (1.001-1.035) Urine Protein Negative (Negative) Urine Ketones 1+ (Negative) H Urine Blood Trace /uL (Negative) H Urine Nitrite Negative (Negative) Urine Bilirubin Negative (Negative) Urine Urobilinogen Normal mg/dL (Negative) Urine Leukocyte Esterase Negative /uL (Negative) Urine RBC 2 /hpf (0 - 4) Urine Microscopic WBC 4 /HPF (0-5) Urine Squamous Epithelial Cells Few /hpf (<5) Urine Bacteria Few /hpf (None Seen) H Urine Mucus Few (None Seen) Urine Glucose 4+ mg/dL (Normal) H Microbiology Microbiology Date/Time Source Procedure Growth Status 09/07/24 09:10 Blood Blood Culture - Final Escherichia coli Complete Assessment/Plan Assessment/Plan Acute metabolic encephalopathy Sepsis UTI Bacteremia with G- rods HTN GERD PLAN: IV Zosyn Advance diet Blood culture g- rods Physical therapy Discussed with family at the bedside 09/08/24: Sepsis with septic shock UTI Bacteremia w G- rods Gallstones Rule out acute cholecystitis Metabolic encephalopathy Reported blood in stools per family, rule out GI bleed Hypokalemia Lactic acidosis Continue IV fluids IV Zosyn & Vanco Levophed prn Rule out GI bleed: Stool occult blood No Lovenox until GI bleed is ruled out Consult GI Consult G. Surgery NPO Protonix IV Replace K+ and Mg Discussed with daughter at the bedside 09/09/2024: Possible acute cholecystitis: Get a HIDA scan Fever/bacteremia/sepsis: Zosyn and vancomycin Sepsis: IV fluids Hypokalemia: Replace as needed Thrombocytopenia due to sepsis Bacteremia with Gram-negative rods: Sensitivity is still pending NPO for HIDA scan Oxygen as needed Incentive spirometry 09/10/2024: Sepsis is improving White count is normal to 7.1 Platelets count are 91 however Potassium 3.3, hypokalemia Bacteremia with Escherichia coli : Continue Zosyn Discontinue vancomycin Surgical consult recommended laparoscopic cholecystectomy inpatient versus outpatient, the family is thinking about it IV fluids Replace potassium as needed Monitor closely Discussed with the daughter at the bedside Plan discussed with: Patient, Daughter Date of Service: Sep 10, 2024 Billing Provider: SHAHRIAR SHAH MD Common Visit Codes: NOT BILLABLE SHAHRIAR SHAH MD Sep 10, 2024 15:33
--- NOTE | 2024-09-10 16:52 | DVHPN2 ---
Progress Note - Dictate Date Seen: Sep 10, 2024 Medical Necessity Reason Pt with a Central, PICC or Fol: No Subjective Patient seen at bedside resting comfortably There was no further nausea or vomiting Abdominal pain has improved Ambulating vital signs Vital Sign Date Time Temp Pulse Resp B/P (MAP) Pulse Ox O2 Delivery O2 Flow Rate FiO2 09/10/24 12:53 98.2 66 18 152/77 (102) 90 98.2 09/10/24 08:10 Room Air* 0 21 Total Intake and Output 09/09/24 09/09/24 09/10/24 15:00 23:00 07:00 Intake Total 550 ml 500 ml Balance 550 ml 500 ml medications Current Medications Medications Dose Ordered Sig/Stephanie Route Start Time Stop Time Status Last Admin Dose Admin Pantoprazole Sodium 40 mg DAILY IV 09/07/24 10:00 09/10/24 10:38 40 MG Ondansetron HCl 4 mg Q4HP PRN IV 09/07/24 02:45 Acetaminophen 650 mg Q6HP PRN PO 09/07/24 02:45 09/09/24 04:55 650 MG Morphine Sulfate 2 mg Q6HPRN PRN IV 09/07/24 02:45 Piperacillin Sod/ Tazobactam Sod 100 ml @ 25 mls/hr Q8HR IV 09/07/24 08:30 09/10/24 15:36 25 MLS/HR Sodium Chloride 1,000 ml @ 75 mls/hr [id number] IV 09/08/24 09:15 09/10/24 15:47 75 MLS/HR objective Gen: 74-year-old female in no distress; sleeping Skin: Warm, dry, normal color and texture, no rash. HEENT: Normocephalic atraumatic, mucous membranes moist and pink. Neck: Cervical and supraclavicular nodes normal without enlargement, trachea is midline, thyroid gland is normal without masses. Pulmonary: Clear to auscultation and percussion bilaterally. CVS S1S2 rrr Abdomen: Soft, nontender, nondistended, bowel sounds present all 4 quadrants, no guarding, no rigidity, no organomegaly. Extremities: No cyanosis, clubbing, no edema Neuro: Cranial nerves II through XII grossly intact, normal affect and speech, no focal motor deficits. laboratory and microbiology Laboratory Tests 09/10/24 05:51 Test 09/10/24 05:51 Range/Units Serum Glucose 215 H 74-106 mg/dL Problems(with codes): (1) Cholelithiasis and cholecystitis without obstruction (2) Abdominal pain in female (3) Elevated liver enzymes (4) Nausea & vomiting (5) Gram negative septicemia Prognosis PLAN Continue Zosyn Surgical consult recommended laparoscopic cholecystectomy inpatient versus outpatient, the family is thinking about it IV fluids ; supportive care Discussed with the daughter at the bedside Dietary Evaluation Review Comments: 1. Recommend diet progression to Low Fat diet if cholecystectomy needed 2. Encourage good PO intakes >75% of meals 3. Pt not to go >5 days NPO/CL diet only -> Currently Day 2 Expected Outcomes/Goals: Diet progression, improved GI sx. Plan discussed with: Patient MEGHAN ADAIR MD Sep 10, 2024 16:52
[2024-09-10] MEDS: LOSARTAN POTASSIUM 25 MG TAB PO ONE (18:08)
[2024-09-10] MEDS: NYSTATIN (MOUTH-THROAT) 500,000 UNITS/5 ML SUSP MT ONE (18:18)
[2024-09-10] MEDS: NYSTATIN (MOUTH-THROAT) 500,000 UNITS/5 ML SUSP MT SCH (21:01)
[2024-09-10] MEDS: hydrALAZINE HCL 20 MG/ML VL IV PRN (21:04)
--- NOTE | 2024-09-10 22:02 | DVHPN2 ---
Progress Note - Dictate Date Seen: Sep 10, 2024 Medical Necessity Reason Pt with a Central, PICC or Fol: No Subjective Patient seen and examined at bedside. Breathing on room air. Overnight events reviewed. vital signs Vital Sign Date Time Temp Pulse Resp B/P (MAP) Pulse Ox O2 Delivery O2 Flow Rate FiO2 09/10/24 21:04 169/73 09/10/24 21:00 98.1 69 16 94 98.1 09/10/24 20:00 Room Air* 0 21 Total Intake and Output 09/09/24 09/09/24 09/10/24 15:00 23:00 07:00 Intake Total 550 ml 500 ml Balance 550 ml 500 ml medications Current Medications Medications Dose Ordered Sig/Stephanie Route Start Time Stop Time Status Last Admin Dose Admin Pantoprazole Sodium 40 mg DAILY IV 09/07/24 10:00 09/10/24 10:38 40 MG Ondansetron HCl 4 mg Q4HP PRN IV 09/07/24 02:45 Acetaminophen 650 mg Q6HP PRN PO 09/07/24 02:45 09/09/24 04:55 650 MG Morphine Sulfate 2 mg Q6HPRN PRN IV 09/07/24 02:45 Piperacillin Sod/ Tazobactam Sod 100 ml @ 25 mls/hr Q8HR IV 09/07/24 08:30 09/10/24 21:01 25 MLS/HR Sodium Chloride 1,000 ml @ 75 mls/hr [id number] IV 09/08/24 09:15 09/10/24 15:47 75 MLS/HR Losartan Potassium 25 mg DAILY PO 09/11/24 10:00 Hydralazine HCl 10 mg Q6HP PRN IV 09/10/24 17:30 09/10/24 21:04 10 MG Nystatin 5 ml QID MT 09/10/24 22:00 09/10/24 21:01 5 ML objective Gen.: Patient lying in bed in no apparent distress. On room air Head: Normocephalic, atraumatic. Eyes: EOMI/PERRLA. Ears: Normal hearing. Normal anatomy. Neck/trachea: Trachea midline, supple. Nose: Normal external anatomy. Mouth: Moist mucous membranes. Chest: Decreased air entry bilaterally. No wheezing or rhonchi. Cardiovascular: Positive S1, positive S2. Regular rate and rhythm. Abdomen: Positive bowel sounds in all 4 quadrants. Soft, non-tender, non- distended. : Deferred. Rectal: Deferred. Skin: Warm, dry. Intact. Extremities: 2+ radial pulses bilaterally. No lower extremity edema. Neuro: Awake, alert, oriented x3. No gross motor or sensory deficits. Cranial nerves II through XII intact. Gait not assessed. laboratory and microbiology Laboratory Tests 09/10/24 05:51 Test 09/10/24 05:51 Range/Units Serum Glucose 215 H 74-106 mg/dL Assessment/Plan Impression: Acute hypoxic respiratory failure Sepsis due to bacteremia with GPCs Lactic acidosis Acute gastroenteritis Abdominal pain, acute Febrile Events: On room air Supplemental oxygen PRN Surgical consult recommended laparoscopic cholecystectomy inpatient versus outpatient - awaiting family decision Complete antibiotics Blood cultures positive for GNRs Continue antihypertensives Protonix for GI prophylaxis Start nystatin for thrush Monitor renal function. Monitor electrolytes. Supplement as necessary. Potassium supplementation Labs and imaging reviewed. Rest of plan as noted below. Plan: Supplemental oxygen PRN Titrate to keep O2 sats above 92%. Tylenol PRN for fevers Continue antibiotics Follow up blood cultures - positive for GPC Pressors if necessary for hemodynamic support Titrate to keep MAP above 65 mmHg/SBP above 90 mmHg Pain control Avoid oversedation Monitor renal function. Monitor electrolytes. Supplement as necessary. Monitor ins and outs. F/u GI recommendations DVT prophylaxis. Prognosis: Poor given patient's multiple co-morbidities. Rest of plan per hospitalist and other consultants. Thank you, FRIEDA Maria, for allowing me to participate in this patient's care. Further recommendations will depend on the patient's clinical course. Please do not hesitate to contact me if you have any questions or concerns. This medical document was created using an electronic medical record system with [employer] dictation system. Although these documentations are being carefully reviewed, there may still be some phonetic and typographical changes. The errors are purely typographical, due to imperfection on the software program, and do not reflect any compromise in the patient's medical care. Dietary Evaluation Review Comments: 1. Recommend diet progression to Low Fat diet if cholecystectomy needed 2. Encourage good PO intakes >75% of meals 3. Pt not to go >5 days NPO/CL diet only -> Currently Day 2 Expected Outcomes/Goals: Diet progression, improved GI sx. Plan discussed with: Patient, Other (RN [place]) GREGORIO BLISS MD Sep 10, 2024 22:02
[2024-09-11] VITALS (9 sets, daily range): BP systolic 137–167; BP diastolic 59–83; PULSE 63–80; RESP 14–17; TEMP 98–98.6; O2SAT 90–95
[2024-09-11 05:47] LABS: Basophils # (auto) 0 10 ^3/uL (0-0.2); Basophils % (auto) 0.2 % (0.0-2.0); Eosinophils # (auto) 0.1 10 ^3/uL (0-0.8); Eosinophils % (auto) 1.3 % (0.0-7.0); Hematocrit 37.6 % (36.0-46.0); Hemoglobin 13.5 g/dL (12.2-16.2); Lymphocytes # (auto) 1.4 10 ^3/uL (0.4-5.4); Lymphocytes % (auto) 21.5 % (10.0-50.0); Mean Corpuscular Hemoglobin 33.8 pg (28.0-32.0); Mean Corpuscular Hgb Conc. 35.9 g/dL (32.0-36.0); Mean Corpuscular Volume 94.2 fL (80.0-100.0); Monocytes # (auto) 0.7 10 ^3/uL (0-1.3); Monocytes % (auto) 9.9 % (0.0-12.0); Neutrophils # (auto) 4.5 10 ^3/uL (1.6-8.6); Neutrophils % (auto) 67.1 % (37.0-80.0); Platelet Count (auto) 112 10^3/uL (140-450); Red Blood Cells 3.99 10^6/uL (4.0-5.20); Red Cell Distribution Width 12.6 % (11.8-14.3); White Blood Cell 6.6 10^3/uL (4.4-10.8)
[2024-09-11 06:06] LABS: Alanine Aminotransferase 27 U/L (7-40); Albumin 3.5 g/dL (3.2-4.8); Alkaline Phosphatase 94 U/L (46-116); Anion Gap 7 (5-15); Aspartate Aminotransferase 33 U/L (13-40); BUN/Creatinine Ratio 9.6 (10.0-20.0); Carbon Dioxide 28 mmol/L (20-31); Chloride 106 mmol/L (98-107); Magnesium 1.8 mg/dL (1.6-2.6); Sodium 141 mmol/L (136-145); Total Protein 6.2 g/dL (5.7-8.2)
[2024-09-11 06:31] LABS: Blood Urea Nitrogen 8 mg/dL (9-23); Glucose 173 mg/dL (74-106); Potassium 3.1 mmol/L (3.5-5.1)
[2024-09-11] MEDS: LOSARTAN POTASSIUM 25 MG TAB PO SCH (08:17)
[2024-09-11] MEDS: POTASSIUM CHL 20MEQ/50ML 50 ML IV ONE (09:59)
--- NOTE | 2024-09-11 10:10 | DVHPN2 ---
Subjective Complains of sore throat and dysphagia No abdominal pain Potassium is low at 3.1 and magnesium 1.8 Changes from previous H/P or p: Changes Objective Vitals Vital Signs Date Time Temp Pulse Resp B/P (MAP) Pulse Ox O2 Delivery O2 Flow Rate FiO2 09/11/24 08:30 98.0 79 16 149/72 (97) 94 98.0 09/11/24 08:15 Nasal Cannula* 2 28 Intake/Output Intake and Output 09/11/24 07:00 Intake Total 800 ml Balance 800 ml Intake Oral 800 ml # Voids 8 # Bowel Movements 5 General Appearance: Alert, Oriented X3, Cooperative Lungs: Clear to auscultation, Normal air movement Cardiovascular: Regular rate, Normal S1 Abdomen: Normal bowel sounds, Soft, No tenderness Extremities: No edema Medications Current Medications Medications Dose Ordered Sig/Stephanie Route Start Time Stop Time Status Last Admin Dose Admin Pantoprazole Sodium 40 mg DAILY IV 09/07/24 10:00 09/11/24 08:17 40 MG Ondansetron HCl 4 mg Q4HP PRN IV 09/07/24 02:45 Acetaminophen 650 mg Q6HP PRN PO 09/07/24 02:45 09/09/24 04:55 650 MG Morphine Sulfate 2 mg Q6HPRN PRN IV 09/07/24 02:45 Piperacillin Sod/ Tazobactam Sod 100 ml @ 25 mls/hr Q8HR IV 09/07/24 08:30 09/11/24 05:09 25 MLS/HR Sodium Chloride 1,000 ml @ 75 mls/hr [id number] IV 09/08/24 09:15 09/11/24 03:01 75 MLS/HR Losartan Potassium 25 mg DAILY PO 09/11/24 10:00 09/11/24 08:17 25 MG Hydralazine HCl 10 mg Q6HP PRN IV 09/10/24 17:30 09/11/24 06:55 10 MG Nystatin 5 ml QID MT 09/10/24 22:00 09/11/24 05:10 5 ML Laboratory Results Laboratory Tests 09/11/24 05:22 Chemistry Test 09/11/24 05:22 Albumin 3.5 g/dL (3.2-4.8) Calcium Level 9.0 mg/dL (8.7-10.4) Magnesium Level 1.8 mg/dL (1.6-2.6) Total Protein 6.2 g/dL (5.7-8.2) LFT Test 09/11/24 05:22 Alanine Aminotransferase (ALT) 27 U/L (7-40) Alkaline Phosphatase 94 U/L (46-116) Aspartate Amino Transferase (AST) 33 U/L (13-40) Total Bilirubin 1.0 mg/dL (0.2-1.0) Urinalysis Test 09/06/24 16:21 Urine Color Light-yellow (Yellow) Urine Clarity Clear (Clear) Urine pH 5.0 (5.0-9.0) Urine Specific [place] 1.007 (1.001-1.035) Urine Protein Negative (Negative) Urine Ketones 1+ (Negative) H Urine Blood Trace /uL (Negative) H Urine Nitrite Negative (Negative) Urine Bilirubin Negative (Negative) Urine Urobilinogen Normal mg/dL (Negative) Urine Leukocyte Esterase Negative /uL (Negative) Urine RBC 2 /hpf (0 - 4) Urine Microscopic WBC 4 /HPF (0-5) Urine Squamous Epithelial Cells Few /hpf (<5) Urine Bacteria Few /hpf (None Seen) H Urine Mucus Few (None Seen) Urine Glucose 4+ mg/dL (Normal) H Microbiology Microbiology Date/Time Source Procedure Growth Status 09/07/24 09:10 Blood Blood Culture - Final Escherichia coli Complete Assessment/Plan Assessment/Plan Acute metabolic encephalopathy Sepsis UTI Bacteremia with G- rods HTN GERD PLAN: IV Zosyn Advance diet Blood culture g- rods Physical therapy Discussed with family at the bedside 09/08/24: Sepsis with septic shock UTI Bacteremia w G- rods Gallstones Rule out acute cholecystitis Metabolic encephalopathy Reported blood in stools per family, rule out GI bleed Hypokalemia Lactic acidosis Continue IV fluids IV Zosyn & Vanco Levophed prn Rule out GI bleed: Stool occult blood No Lovenox until GI bleed is ruled out Consult GI Consult G. Surgery NPO Protonix IV Replace K+ and Mg Discussed with daughter at the bedside 09/09/2024: Possible acute cholecystitis: Get a HIDA scan Fever/bacteremia/sepsis: Zosyn and vancomycin Sepsis: IV fluids Hypokalemia: Replace as needed Thrombocytopenia due to sepsis Bacteremia with Gram-negative rods: Sensitivity is still pending NPO for HIDA scan Oxygen as needed Incentive spirometry 09/10/2024: Sepsis is improving White count is normal to 7.1 Platelets count are 91 however Potassium 3.3, hypokalemia Bacteremia with Escherichia coli : Continue Zosyn Discontinue vancomycin Surgical consult recommended laparoscopic cholecystectomy inpatient versus outpatient, the family is thinking about it IV fluids Replace potassium as needed Monitor closely Discussed with the daughter at the bedside 09/11/2024: Oral candidiasis: Nystatin swish and swallow Discontinue IV fluids Replace potassium Hypertension: Discontinue IV fluids, continue losartan, add metoprolol home medication Discontinue Zosyn and start Rocephin instead The patient and family do not want to have cholecystectomy during this admission Continue physical therapy Discharge planning for tomorrow Add ensure Change diet to soft mechanical Plan discussed with: Patient, Daughter My Orders Orders - SHAHRIAR SHAH MD Procedure Category Date Status Time Losartan Tablet PHA 09/11/24 In Process (Cozaar Tablet) 10:00 Hydralazine Injection PHA 09/10/24 In Process (Apresoline Inject 17:30 Potassium Chl PHA 09/11/24 In Process 20meq/50ml (Potassium 10:00 Date of Service: Sep 11, 2024 Billing Provider: SHAHRIAR SHAH MD Common Visit Codes: NOT BILLABLE SHAHRIAR SHAH MD Sep 11, 2024 10:10
[2024-09-11] MEDS: METOPROLOL TARTRATE 25 MG TAB PO ONE (11:39)
[2024-09-11] MEDS: Ensure HIGH Protein Chocolate 8oz Bottle PO SCH (12:00)
[2024-09-11] MEDS: METOPROLOL TARTRATE 25 MG TAB PO SCH (21:03)
--- NOTE | 2024-09-11 23:35 | DVHPN2 ---
Progress Note - Dictate Date Seen: Sep 11, 2024 Medical Necessity Reason Pt with a Central, PICC or Fol: No Subjective Patient seen and examined at bedside. Breathing on room air. Overnight events reviewed. vital signs Vital Sign Date Time Temp Pulse Resp B/P (MAP) Pulse Ox O2 Delivery O2 Flow Rate FiO2 09/11/24 21:03 69 144/68 09/11/24 21:00 98.6 17 95 98.6 09/11/24 20:00 Nasal Cannula* 2 28 Total Intake and Output 09/10/24 09/10/24 09/11/24 15:00 23:00 07:00 Intake Total 200 ml 600 ml Balance 200 ml 600 ml medications Current Medications Medications Dose Ordered Sig/Stephanie Route Start Time Stop Time Status Last Admin Dose Admin Pantoprazole Sodium 40 mg DAILY IV 09/07/24 10:00 09/11/24 08:17 40 MG Ondansetron HCl 4 mg Q4HP PRN IV 09/07/24 02:45 Acetaminophen 650 mg Q6HP PRN PO 09/07/24 02:45 09/09/24 04:55 650 MG Morphine Sulfate 2 mg Q6HPRN PRN IV 09/07/24 02:45 Losartan Potassium 25 mg DAILY PO 09/11/24 10:00 09/11/24 08:17 25 MG Hydralazine HCl 10 mg Q6HP PRN IV 09/10/24 17:30 09/11/24 16:48 10 MG Nystatin 5 ml QID MT 09/10/24 22:00 09/11/24 21:01 5 ML Metoprolol Tartrate 25 mg BID PO 09/11/24 22:00 09/11/24 21:03 25 MG Ceftriaxone Sodium 50 ml @ 100 mls/hr DAILY@09 IV 09/12/24 09:00 Enteral Nutritional Formula 240 ml TIDWM PO 09/11/24 12:00 09/11/24 18:32 240 ML objective Gen.: Patient lying in bed in no apparent distress. On room air Head: Normocephalic, atraumatic. Eyes: EOMI/PERRLA. Ears: Normal hearing. Normal anatomy. Neck/trachea: Trachea midline, supple. Nose: Normal external anatomy. Mouth: Moist mucous membranes. Chest: Decreased air entry bilaterally. No wheezing or rhonchi. Cardiovascular: Positive S1, positive S2. Regular rate and rhythm. Abdomen: Positive bowel sounds in all 4 quadrants. Soft, non-tender, non- distended. : Deferred. Rectal: Deferred. Skin: Warm, dry. Intact. Extremities: 2+ radial pulses bilaterally. No lower extremity edema. Neuro: Awake, alert, oriented x3. No gross motor or sensory deficits. Cranial nerves II through XII intact. Gait not assessed. laboratory and microbiology Laboratory Tests 09/11/24 05:22 Test 09/11/24 05:22 Range/Units Serum Glucose 173 H 74-106 mg/dL Assessment/Plan Impression: Acute hypoxic respiratory failure Sepsis due to bacteremia with GPCs Lactic acidosis Acute gastroenteritis Abdominal pain, acute Febrile Events: On room air Supplemental oxygen PRN Patient and family refused cholecystectomy Complete antibiotics Blood cultures positive for GNRs Continue antihypertensives Protonix for GI prophylaxis Continue nystatin for thrush Monitor renal function. Monitor electrolytes. Supplement as necessary. Potassium supplementation Labs and imaging reviewed. Rest of plan as noted below. Plan: Supplemental oxygen PRN Titrate to keep O2 sats above 92%. Tylenol PRN for fevers Continue antibiotics Follow up blood cultures - positive for GPC Pressors if necessary for hemodynamic support Titrate to keep MAP above 65 mmHg/SBP above 90 mmHg Pain control Avoid oversedation Monitor renal function. Monitor electrolytes. Supplement as necessary. Monitor ins and outs. F/u GI recommendations DVT prophylaxis. Prognosis: Poor given patient's multiple co-morbidities. Rest of plan per hospitalist and other consultants. Thank you, FRIEDA Maria, for allowing me to participate in this patient's care. Further recommendations will depend on the patient's clinical course. Please do not hesitate to contact me if you have any questions or concerns. This medical document was created using an electronic medical record system with [employer] dictation system. Although these documentations are being carefully reviewed, there may still be some phonetic and typographical changes. The errors are purely typographical, due to imperfection on the software program, and do not reflect any compromise in the patient's medical care. Dietary Evaluation Review Comments: 1. Recommend diet progression to Low Fat diet if cholecystectomy needed 2. Encourage good PO intakes >75% of meals 3. Pt not to go >5 days NPO/CL diet only -> Currently Day 2 Expected Outcomes/Goals: Diet progression, improved GI sx. Plan discussed with: Patient, Other (RN) BLISS,GREGORIO M MD Sep 11, 2024 23:35
[2024-09-12] VITALS (9 sets, daily range): BP systolic 140–172; BP diastolic 65–81; PULSE 63–82; RESP 16–18; TEMP 98–99.5; O2SAT 91–95
[2024-09-12 06:54] LABS: Basophils # (auto) 0.1 10 ^3/uL (0-0.2); Basophils % (auto) 0.6 % (0.0-2.0); Eosinophils # (auto) 0.1 10 ^3/uL (0-0.8); Eosinophils % (auto) 0.6 % (0.0-7.0); Hematocrit 37.9 % (36.0-46.0); Hemoglobin 13.5 g/dL (12.2-16.2); Lymphocytes # (auto) 1.1 10 ^3/uL (0.4-5.4); Lymphocytes % (auto) 12.3 % (10.0-50.0); Mean Corpuscular Hemoglobin 33.4 pg (28.0-32.0); Mean Corpuscular Hgb Conc. 35.7 g/dL (32.0-36.0); Mean Corpuscular Volume 93.6 fL (80.0-100.0); Monocytes # (auto) 0.7 10 ^3/uL (0-1.3); Monocytes % (auto) 7.9 % (0.0-12.0); Neutrophils # (auto) 6.8 10 ^3/uL (1.6-8.6); Neutrophils % (auto) 78.6 % (37.0-80.0); Platelet Count (auto) 155 10^3/uL (140-450); Red Blood Cells 4.06 10^6/uL (4.0-5.20); Red Cell Distribution Width 12.9 % (11.8-14.3); White Blood Cell 8.6 10^3/uL (4.4-10.8)
[2024-09-12 06:58] LABS: Alanine Aminotransferase 26 U/L (7-40); Alkaline Phosphatase 94 U/L (46-116); Anion Gap 9 (5-15); Aspartate Aminotransferase 30 U/L (13-40); BUN/Creatinine Ratio 11.4 (10.0-20.0); Carbon Dioxide 23 mmol/L (20-31); Chloride 106 mmol/L (98-107); Magnesium 1.8 mg/dL (1.6-2.6); Sodium 138 mmol/L (136-145); Total Protein 6.3 g/dL (5.7-8.2)
[2024-09-12 06:59] LABS: Albumin 3.6 g/dL (3.2-4.8); Bilirubin, Total 0.9 mg/dL (0.2-1.0)
[2024-09-12 07:02] LABS: Blood Urea Nitrogen 8 mg/dL (9-23); Glucose 162 mg/dL (74-106)
[2024-09-12] MEDS: cefTRIAXone 1GM/50ML D5W 50 ML IV SCH (10:10)
--- NOTE | 2024-09-12 15:52 | DVHPN2 ---
Subjective Continues to report having mouth pain. Denies any nausea, vomiting, diarrhea. Reviewed: Care Plan, H&P, Labs, Medications, Previous Orders Changes from previous H/P or p: No Changes General: Per HPI Objective Vitals Vital Signs Date Time Temp Pulse Resp B/P (MAP) Pulse Ox O2 Delivery O2 Flow Rate FiO2 09/12/24 15:01 140/67 (91) 09/12/24 13:00 98.1 63 16 92 98.1 09/12/24 08:05 Room Air* 0 21 Intake/Output Intake and Output 09/12/24 07:00 Intake Total 720 ml Output Total 500 ml Balance 220 ml Intake Oral 420 ml IV Total 300 ml Output Urine Total 500 ml # Voids 9 # Bowel Movements 3 General Appearance: Alert, Oriented X3, Cooperative HEENT: PERRLA, Other (Oral Shantelle) Lungs: Clear to auscultation, Normal air movement Cardiovascular: Regular rate, Normal S1 Abdomen: Normal bowel sounds, Soft, No tenderness Extremities: No edema Skin: Dry, Intact Psych/Mental Status: Mental status NL, Mood NL Medications Current Medications Medications Dose Ordered Sig/Stephanie Route Start Time Stop Time Status Last Admin Dose Admin Pantoprazole Sodium 40 mg DAILY IV 09/07/24 10:00 09/12/24 10:13 40 MG Ondansetron HCl 4 mg Q4HP PRN IV 09/07/24 02:45 Acetaminophen 650 mg Q6HP PRN PO 09/07/24 02:45 09/09/24 04:55 650 MG Morphine Sulfate 2 mg Q6HPRN PRN IV 09/07/24 02:45 Losartan Potassium 25 mg DAILY PO 09/11/24 10:00 09/12/24 10:10 25 MG Hydralazine HCl 10 mg Q6HP PRN IV 09/10/24 17:30 09/12/24 02:42 10 MG Nystatin 5 ml QID MT 09/10/24 22:00 09/12/24 13:32 5 ML Metoprolol Tartrate 25 mg BID PO 09/11/24 22:00 09/12/24 10:11 25 MG Ceftriaxone Sodium 50 ml @ 100 mls/hr DAILY@09 IV 09/12/24 09:00 09/12/24 10:10 100 MLS/HR Enteral Nutritional Formula 240 ml TIDWM PO 09/11/24 12:00 09/12/24 12:00 240 ML Laboratory Results Laboratory Tests 09/12/24 05:02 Chemistry Test 09/12/24 05:02 Albumin 3.6 g/dL (3.2-4.8) Calcium Level 9.0 mg/dL (8.7-10.4) Magnesium Level 1.8 mg/dL (1.6-2.6) Total Protein 6.3 g/dL (5.7-8.2) LFT Test 09/12/24 05:02 Alanine Aminotransferase (ALT) 26 U/L (7-40) Alkaline Phosphatase 94 U/L (46-116) Aspartate Amino Transferase (AST) 30 U/L (13-40) Total Bilirubin 0.9 mg/dL (0.2-1.0) Urinalysis Test 09/06/24 16:21 Urine Color Light-yellow (Yellow) Urine Clarity Clear (Clear) Urine pH 5.0 (5.0-9.0) Urine Specific [place] 1.007 (1.001-1.035) Urine Protein Negative (Negative) Urine Ketones 1+ (Negative) H Urine Blood Trace /uL (Negative) H Urine Nitrite Negative (Negative) Urine Bilirubin Negative (Negative) Urine Urobilinogen Normal mg/dL (Negative) Urine Leukocyte Esterase Negative /uL (Negative) Urine RBC 2 /hpf (0 - 4) Urine Microscopic WBC 4 /HPF (0-5) Urine Squamous Epithelial Cells Few /hpf (<5) Urine Bacteria Few /hpf (None Seen) H Urine Mucus Few (None Seen) Urine Glucose 4+ mg/dL (Normal) H Microbiology Microbiology Date/Time Source Procedure Growth Status 09/07/24 09:10 Blood Blood Culture - Final Escherichia coli Complete Labs and/or images reviewed: Labs reviewed by me, Image(s) reviewed by me Assessment/Plan Assessment/Plan Impression: -sepsis,? Cholelithiasis/cholecystitis -oral Shantelle -accelerated hypertension -septic shock -hypertension -GERD Plan: -patient continues to be hypokalemic. Restart IV fluids with potassium, oral potassium -repeat labs in a.m. -continue antibiotic therapy -pain management -increase oral intake -long discussion made with the patient's family was bedside. All questions answered. Total time spent with patient discussing and formulating plan of care: 35 minutes. This medical document was created using an electronic medical record system with Dragon computerized dictation system. Although this document has been carefully reviewed, there may still be some phonetic and typographical errors. These areas are purely typographical due to imperfections of the software programs, and do not reflect any compromise in the patient's medical care. Plan discussed with: Patient, Other (RN) My Orders Orders - HOLLIE DU NP Procedure Category Date Status Time D5w/Sod Chl 0.9%/Kcl PHA 09/12/24 In Process 40meq 15:45 Date of Service: Sep 12, 2024 Billing Provider: HOLLIE DU NP Common Visit Codes: [id number] INP/OBS CARE(HIGH) HOLLIE DU NP Sep 12, 2024 15:52
[2024-09-12] MEDS: POTASSIUM CHL 10 Meq TABLET PO ONE (15:57)
[2024-09-12] MEDS: D5W/SOD CHL 0.9%/KCL 40MEQ 1,000 ML IV ONE (15:57)
--- NOTE | 2024-09-12 17:40 | DVHPN2 ---
Progress Note - Dictate Date Seen: Sep 12, 2024 Medical Necessity Reason Pt with a Central, PICC or Fol: No Subjective Patient seen at bedside resting comfortably There was no further nausea or vomiting Abdominal pain has improved vital signs Vital Sign Date Time Temp Pulse Resp B/P (MAP) Pulse Ox O2 Delivery O2 Flow Rate FiO2 09/12/24 17:00 98.0 72 18 140/73 (95) 93 98.0 09/12/24 08:05 Room Air* 0 21 Total Intake and Output 09/11/24 09/11/24 09/12/24 15:00 23:00 07:00 Intake Total 300 ml 300 ml 120 ml Output Total 500 ml Balance -200 ml 300 ml 120 ml medications Current Medications Medications Dose Ordered Sig/Stephanie Route Start Time Stop Time Status Last Admin Dose Admin Pantoprazole Sodium 40 mg DAILY IV 09/07/24 10:00 09/12/24 10:13 40 MG Ondansetron HCl 4 mg Q4HP PRN IV 09/07/24 02:45 Acetaminophen 650 mg Q6HP PRN PO 09/07/24 02:45 09/09/24 04:55 650 MG Morphine Sulfate 2 mg Q6HPRN PRN IV 09/07/24 02:45 Losartan Potassium 25 mg DAILY PO 09/11/24 10:00 09/12/24 10:10 25 MG Hydralazine HCl 10 mg Q6HP PRN IV 09/10/24 17:30 09/12/24 02:42 10 MG Nystatin 5 ml QID MT 09/10/24 22:00 09/12/24 13:32 5 ML Metoprolol Tartrate 25 mg BID PO 09/11/24 22:00 09/12/24 10:11 25 MG Ceftriaxone Sodium 50 ml @ 100 mls/hr DAILY@09 IV 09/12/24 09:00 09/12/24 10:10 100 MLS/HR Enteral Nutritional Formula 240 ml TIDWM PO 09/11/24 12:00 09/12/24 12:00 240 ML objective Gen: 74-year-old female in no distress; sleeping Skin: Warm, dry, normal color and texture, no rash. HEENT: Normocephalic atraumatic, mucous membranes moist and pink. Neck: Cervical and supraclavicular nodes normal without enlargement, trachea is midline, thyroid gland is normal without masses. Pulmonary: Clear to auscultation and percussion bilaterally. CVS S1S2 rrr Abdomen: Soft, nontender, nondistended, bowel sounds present all 4 quadrants, no guarding, no rigidity, no organomegaly. Extremities: No cyanosis, clubbing, no edema Neuro: Cranial nerves II through XII grossly intact, normal affect and speech, no focal motor deficits. laboratory and microbiology Laboratory Tests 09/12/24 05:02 Test 09/12/24 05:02 Range/Units Serum Glucose 162 H 74-106 mg/dL Problems(with codes): (1) Elevated liver enzymes (2) Abdominal pain in female (3) Cholelithiasis and cholecystitis without obstruction (4) Nausea & vomiting (5) Gram negative septicemia (6) Lactic acidosis Prognosis Plan I spoke to the daughter at bedside At this time there was no plan to proceed with a cholecystectomy as the patient's and daughter feels like she is better I gave her my contact information She will follow up with me in my office as an outpatient for elective panendoscopy and for continued observation of her cholelithiasis Once again thank you for allowing me to participate in the care of this patient Continue IV antibiotics Dietary Evaluation Review Comments: 1. Recommend diet progression to Low Fat diet if cholecystectomy needed 2. Encourage good PO intakes >75% of meals 3. Pt not to go >5 days NPO/CL diet only -> Currently Day 2 Expected Outcomes/Goals: Diet progression, improved GI sx. Plan discussed with: Patient, Daughter MEGHAN ADAIR MD Sep 12, 2024 17:40
[2024-09-13] VITALS (7 sets, daily range): BP systolic 146–168; BP diastolic 66–78; PULSE 59–79; RESP 15–18; TEMP 97.9–101; O2SAT 91–95
[2024-09-13 06:24] LABS: Anion Gap 8 (5-15); Carbon Dioxide 23 mmol/L (20-31); Chloride 107 mmol/L (98-107); Sodium 138 mmol/L (136-145)
[2024-09-13 06:25] LABS: Calcium 8.7 mg/dL (8.7-10.4)
[2024-09-13 06:30] LABS: BUN/Creatinine Ratio 8.8 (10.0-20.0)
[2024-09-13 06:31] LABS: Magnesium 1.8 mg/dL (1.6-2.6)
[2024-09-13 06:35] LABS: Blood Urea Nitrogen 6 mg/dL (9-23); Glucose 178 mg/dL (74-106); Potassium 3.3 mmol/L (3.5-5.1)
[2024-09-13] MEDS: POTASSIUM CHLORIDE 8 MEQ TAB PO ONE (07:48)
--- NOTE | 2024-09-13 09:01 | DVHPN2 ---
Progress Note - Dictate Date Seen: Sep 12, 2024 Medical Necessity Reason Pt with a Central, PICC or Fol: No Subjective Patient seen and examined at bedside. Breathing on room air. Overnight events reviewed. vital signs Vital Sign Date Time Temp Pulse Resp B/P (MAP) Pulse Ox O2 Delivery O2 Flow Rate FiO2 09/13/24 07:45 Room Air* 0 21 09/13/24 04:52 98.3 61 16 148/73 (98) 94 98.3 Total Intake and Output 09/12/24 09/12/24 09/13/24 14:59 22:59 06:59 Intake Total 800 ml 400 ml Balance 800 ml 400 ml medications Current Medications Medications Dose Ordered Sig/Stephanie Route Start Time Stop Time Status Last Admin Dose Admin Pantoprazole Sodium 40 mg DAILY IV 09/07/24 10:00 09/12/24 10:13 40 MG Ondansetron HCl 4 mg Q4HP PRN IV 09/07/24 02:45 Acetaminophen 650 mg Q6HP PRN PO 09/07/24 02:45 09/09/24 04:55 650 MG Morphine Sulfate 2 mg Q6HPRN PRN IV 09/07/24 02:45 Losartan Potassium 25 mg DAILY PO 09/11/24 10:00 09/12/24 10:10 25 MG Hydralazine HCl 10 mg Q6HP PRN IV 09/10/24 17:30 09/12/24 02:42 10 MG Nystatin 5 ml QID MT 09/10/24 22:00 09/13/24 05:18 5 ML Metoprolol Tartrate 25 mg BID PO 09/11/24 22:00 09/12/24 21:54 25 MG Ceftriaxone Sodium 50 ml @ 100 mls/hr DAILY@09 IV 09/12/24 09:00 09/12/24 10:10 100 MLS/HR Enteral Nutritional Formula 240 ml TIDWM PO 09/11/24 12:00 09/12/24 18:00 240 ML objective Gen.: Patient lying in bed in no apparent distress. On room air Head: Normocephalic, atraumatic. Eyes: EOMI/PERRLA. Ears: Normal hearing. Normal anatomy. Neck/trachea: Trachea midline, supple. Nose: Normal external anatomy. Mouth: Moist mucous membranes. Chest: Decreased air entry bilaterally. No wheezing or rhonchi. Cardiovascular: Positive S1, positive S2. Regular rate and rhythm. Abdomen: Positive bowel sounds in all 4 quadrants. Soft, non-tender, non- distended. : Deferred. Rectal: Deferred. Skin: Warm, dry. Intact. Extremities: 2+ radial pulses bilaterally. No lower extremity edema. Neuro: Awake, alert, oriented x3. No gross motor or sensory deficits. Cranial nerves II through XII intact. Gait not assessed. laboratory and microbiology Laboratory Tests 09/13/24 05:12 09/12/24 05:02 Test 09/13/24 05:12 Range/Units Serum Glucose 178 H 74-106 mg/dL Assessment/Plan Impression: Acute hypoxic respiratory failure Sepsis due to bacteremia with GPCs Lactic acidosis Acute gastroenteritis Abdominal pain, acute Febrile Events: On room air Supplemental oxygen PRN Antitussive - patient complains of cough No shortness of breath Complete antibiotics Blood cultures grew E. coli Continue antihypertensives Protonix for GI prophylaxis Continue nystatin for thrush Monitor renal function. Monitor electrolytes. Supplement as necessary. Potassium supplementation Labs and imaging reviewed. Rest of plan as noted below. Plan: Supplemental oxygen PRN Titrate to keep O2 sats above 92%. Complete antibiotics Continue antihypertensives Pressors if necessary for hemodynamic support Titrate to keep MAP above 65 mmHg/SBP above 90 mmHg Monitor renal function. Monitor electrolytes. Supplement as necessary. Monitor ins and outs. Protonix for GI prophylaxis GI recommendations appreciated DVT prophylaxis. Prognosis: Poor given patient's multiple co-morbidities. Rest of plan per hospitalist and other consultants. Thank you, FRIEDA Maria, for allowing me to participate in this patient's care. Further recommendations will depend on the patient's clinical course. Please do not hesitate to contact me if you have any questions or concerns. This medical document was created using an electronic medical record system with [employer] dictation system. Although these documentations are being carefully reviewed, there may still be some phonetic and typographical changes. The errors are purely typographical, due to imperfection on the software program, and do not reflect any compromise in the patient's medical care. Dietary Evaluation Review Comments: 1. Recommend diet progression to Low Fat diet if cholecystectomy needed 2. Encourage good PO intakes >75% of meals 3. Pt not to go >5 days NPO/CL diet only -> Currently Day 2 Expected Outcomes/Goals: Diet progression, improved GI sx. Plan discussed with: Patient, Other (RN) GREGORIO BLISS MD Sep 13, 2024 09:01
--- NOTE | 2024-09-13 14:12 | DVHPN2 ---
Subjective Pt. reporting being febrile and having diarrhea. Reviewed: Care Plan, H&P, Labs, Medications, Previous Orders Changes from previous H/P or p: Changes General: Per HPI Objective Vitals Vital Signs Date Time Temp Pulse Resp B/P (MAP) Pulse Ox O2 Delivery O2 Flow Rate FiO2 09/13/24 12:57 101.0 79 15 149/66 (93) 91 101.0 09/13/24 07:45 Room Air* 0 21 Intake/Output Intake and Output 09/13/24 07:00 Intake Total 1200 ml Balance 1200 ml Intake Oral 1200 ml # Voids 11 # Bowel Movements 2 General Appearance: Alert, Oriented X3, Cooperative HEENT: PERRLA, Other (Oral Shantelle) Lungs: Clear to auscultation, Normal air movement Cardiovascular: Regular rate, Normal S1 Abdomen: Normal bowel sounds, Soft, No tenderness Extremities: No edema Skin: Dry, Intact Psych/Mental Status: Mental status NL, Mood NL Medications Current Medications Medications Dose Ordered Sig/Stephanie Route Start Time Stop Time Status Last Admin Dose Admin Pantoprazole Sodium 40 mg DAILY IV 09/07/24 10:00 09/13/24 09:15 40 MG Ondansetron HCl 4 mg Q4HP PRN IV 09/07/24 02:45 Acetaminophen 650 mg Q6HP PRN PO 09/07/24 02:45 09/13/24 12:05 650 MG Morphine Sulfate 2 mg Q6HPRN PRN IV 09/07/24 02:45 Losartan Potassium 25 mg DAILY PO 09/11/24 10:00 09/13/24 09:16 25 MG Hydralazine HCl 10 mg Q6HP PRN IV 09/10/24 17:30 09/12/24 02:42 10 MG Nystatin 5 ml QID MT 09/10/24 22:00 09/13/24 12:07 5 ML Metoprolol Tartrate 25 mg BID PO 09/11/24 22:00 09/13/24 09:15 25 MG Ceftriaxone Sodium 50 ml @ 100 mls/hr DAILY@09 IV 09/12/24 09:00 09/13/24 09:15 100 MLS/HR Enteral Nutritional Formula 240 ml TIDWM PO 09/11/24 12:00 09/13/24 12:04 240 ML Potassium Chloride/Sodium Chloride 1,000 ml @ 75 mls/hr [id number] IV 09/13/24 13:30 Laboratory Results Laboratory Tests 09/12/24 05:02 09/13/24 05:12 Chemistry Test 09/13/24 05:12 Calcium Level 8.7 mg/dL (8.7-10.4) Magnesium Level 1.8 mg/dL (1.6-2.6) Urinalysis Test 09/06/24 16:21 Urine Color Light-yellow (Yellow) Urine Clarity Clear (Clear) Urine pH 5.0 (5.0-9.0) Urine Specific [place] 1.007 (1.001-1.035) Urine Protein Negative (Negative) Urine Ketones 1+ (Negative) H Urine Blood Trace /uL (Negative) H Urine Nitrite Negative (Negative) Urine Bilirubin Negative (Negative) Urine Urobilinogen Normal mg/dL (Negative) Urine Leukocyte Esterase Negative /uL (Negative) Urine RBC 2 /hpf (0 - 4) Urine Microscopic WBC 4 /HPF (0-5) Urine Squamous Epithelial Cells Few /hpf (<5) Urine Bacteria Few /hpf (None Seen) H Urine Mucus Few (None Seen) Urine Glucose 4+ mg/dL (Normal) H Microbiology Microbiology Date/Time Source Procedure Growth Status 09/07/24 09:10 Blood Blood Culture - Final Escherichia coli Complete Labs and/or images reviewed: Labs reviewed by me, Image(s) reviewed by me Assessment/Plan Assessment/Plan Impression: -sepsis,? Cholelithiasis/cholecystitis -oral Shantelle -accelerated hypertension -septic shock -hypertension -GERD Plan: Events: T 101, chills/shivers. -Repeat blood cultures: noted e coli on previous. -CT chest/abdomen/pelvis with IV contrast -patient continues to be hypokalemic. Restart IV fluids with potassium, oral potassium -repeat labs in a.m. -continue antibiotic therapy -pain management -increase oral intake -Hold DC. Discussed with patient and family Total time spent with patient discussing and formulating plan of care: 35 minutes. This medical document was created using an electronic medical record system with [employer] system. Although this document has been carefully reviewed, there may still be some phonetic and typographical errors. These areas are purely typographical due to imperfections of the software programs, and do not reflect any compromise in the patient's medical care. Plan discussed with: Patient, Daughter, Other (RN) My Orders Orders - HOLLIE DU NP Procedure Category Date Status Time Communication Order ORDERS 09/12/24 Transmitted 17:51 Transfer Orders XFER 09/12/24 Transmitted 17:51 Blood Culture MARIELLE 09/13/24 Logged 13:21 Ct Chest/Ab/Pl W Con- CT 09/13/24 Logged Iv Only 13:21 Sod Chl 0.9%/ Kcl PHA 09/13/24 In Process 40meq 13:30 Complete Blood Count LAB 09/14/24 Verified 04:00 Comprehensive LAB 09/14/24 Verified Metabolic Panel 04:00 Date of Service: Sep 13, 2024 Billing Provider: HOLLIE DU NP Common Visit Codes: [id number] INP/OBS CARE(HIGH) HOLLIE DU NP Sep 13, 2024 14:12
[2024-09-13] MEDS: SOD CHL 0.9%/ KCL 40MEQ 1,000 ML IV SCH (14:48)
[2024-09-13] MEDS: CHOLESTYRAMINE 4 GM POWDER PO ONE (14:48)
--- NOTE | 2024-09-13 17:02 | DVH ---
Exam: CT CT CHEST/AB/PL W CON- IV ONLY History: sepsis Comparison Study: None available at time of dictation. Contrast: Type of contrast: Omnipaque 300 Contrast injected: 100 mL Contrast wasted: 0 TECHNIQUE: A digital counter installer image was obtained. During the uneventful, intravenous administration of c ontrast material, multislice data acquisition was obtained through the abdomen and pelvis. The data s et was subsequently reconstructed into axial images. Images were reviewed on a work station using a c ombination of axial and multiplanar using a variety of window levels and settings. Radiation Dose Information: CT Dose: CTDI volume is 10.38 mGy. Dose-length product is 631.55 mGy*cm FINDINGS: Lung Bases: Trace bilateral pleural effusions Liver: The liver is normal in size. No focal lesions. Normal hepatic vascular enhancement. Gallbladder and Biliary Tree: Possible small gallstones in the gallbladder. Spleen: Unremarkable Pancreas: The pancreas is normal in appearance without focal lesions or abnormal enhancement. Adrenal Glands: Unremarkable Kidneys: Irregularly enhancing upper pole right kidney measuring 4 x 2.9 cm. Mass versus abscess vers us variation in the upper pole of the right kidney consider ultrasound or MRI for further evaluation. Small cortical cysts in both kidneys. Largest is on the left measures 15 mm Bladder: Unremarkable Bowel: The stomach is grossly normal in appearance. Small bowel and colon are normal in caliber and d istribution. The appendix is not visualized; however, no secondary findings of acute appendicitis hardy ntified. Ascites: Absent Lymphadenopathy: No mesenteric, retroperitoneal or periportal lymphadenopathy. Abdominal Wall and Mesentery: 12-13 mm fat containing umbilical hernia. Vasculature: The visualized abdominal aorta is normal in size and caliber. Abdominal and pelvic vess els demonstrate normal enhancement. Pelvic Organs: Unremarkable Musculoskeletal: No aggressive focal bony lesions, acute fractures or dislocation. Soft tissues: Unremarkable. IMPRESSION: 1. Upper pole of the right kidney shows irregular area of enhancing measures 5.3 x 3.3 cm. This may represent abscess or neoplasm. 2. Consider ultrasound or MRI follow-up on the right renal finding. 3. Small bilateral cortical renal cysts. 4. Possible small calcified gallstones in the gallbladder. 5. All CT scans at this medical facility are performed using dose modulation techniques as appropriat e to a performed exam including the following: Automated exposure control was utilized; adjustment of the MA and/or KV according to patient size; and use of iterative reconstruction technique.
--- NOTE | 2024-09-13 19:17 | DVHPN2 ---
Progress Note - Dictate Date Seen: Sep 13, 2024 Medical Necessity Reason Pt with a Central, PICC or Fol: No Subjective Patient seen and examined at bedside. Breathing on room air. Overnight events reviewed. vital signs Vital Sign Date Time Temp Pulse Resp B/P (MAP) Pulse Ox O2 Delivery O2 Flow Rate FiO2 09/13/24 17:00 98.2 63 15 146/71 (96) 92 98.2 09/13/24 07:45 Room Air* 0 21 Total Intake and Output 09/12/24 09/12/24 09/13/24 15:00 23:00 07:00 Intake Total 800 ml 400 ml Balance 800 ml 400 ml medications Current Medications Medications Dose Ordered Sig/Stephanie Route Start Time Stop Time Status Last Admin Dose Admin Pantoprazole Sodium 40 mg DAILY IV 09/07/24 10:00 09/13/24 09:15 40 MG Ondansetron HCl 4 mg Q4HP PRN IV 09/07/24 02:45 Acetaminophen 650 mg Q6HP PRN PO 09/07/24 02:45 09/13/24 12:05 650 MG Morphine Sulfate 2 mg Q6HPRN PRN IV 09/07/24 02:45 Losartan Potassium 25 mg DAILY PO 09/11/24 10:00 09/13/24 09:16 25 MG Hydralazine HCl 10 mg Q6HP PRN IV 09/10/24 17:30 09/12/24 02:42 10 MG Nystatin 5 ml QID MT 09/10/24 22:00 09/13/24 12:07 5 ML Metoprolol Tartrate 25 mg BID PO 09/11/24 22:00 09/13/24 09:15 25 MG Ceftriaxone Sodium 50 ml @ 100 mls/hr DAILY@09 IV 09/12/24 09:00 09/13/24 09:15 100 MLS/HR Enteral Nutritional Formula 240 ml TIDWM PO 09/11/24 12:00 09/13/24 12:04 240 ML Potassium Chloride/Sodium Chloride 1,000 ml @ 75 mls/hr [id number] IV 09/13/24 13:30 09/13/24 14:48 75 MLS/HR objective Gen.: Patient lying in bed in no apparent distress. On room air Head: Normocephalic, atraumatic. Eyes: EOMI/PERRLA. Ears: Normal hearing. Normal anatomy. Neck/trachea: Trachea midline, supple. Nose: Normal external anatomy. Mouth: Moist mucous membranes. Chest: Decreased air entry bilaterally. No wheezing or rhonchi. Cardiovascular: Positive S1, positive S2. Regular rate and rhythm. Abdomen: Positive bowel sounds in all 4 quadrants. Soft, non-tender, non- distended. : Deferred. Rectal: Deferred. Skin: Warm, dry. Intact. Extremities: 2+ radial pulses bilaterally. No lower extremity edema. Neuro: Awake, alert, oriented x3. No gross motor or sensory deficits. Cranial nerves II through XII intact. Gait not assessed. laboratory and microbiology Laboratory Tests 09/13/24 05:12 09/12/24 05:02 Test 09/13/24 05:12 Range/Units Serum Glucose 178 H 74-106 mg/dL Assessment/Plan Impression: Acute hypoxic respiratory failure Sepsis due to bacteremia with GPCs Lactic acidosis Acute gastroenteritis Abdominal pain, acute Febrile Events: Remains on room air Supplemental oxygen PRN Antitussive - patient complains of cough No shortness of breath Complete antibiotics Blood cultures grew E. coli Continue antihypertensives Protonix for GI prophylaxis Continue nystatin for thrush Monitor renal function. Monitor electrolytes. Supplement as necessary. Potassium supplementation Labs and imaging reviewed. Rest of plan as noted below. Plan: Supplemental oxygen PRN Titrate to keep O2 sats above 92%. Complete antibiotics Continue antihypertensives Pressors if necessary for hemodynamic support Titrate to keep MAP above 65 mmHg/SBP above 90 mmHg Monitor renal function. Monitor electrolytes. Supplement as necessary. Monitor ins and outs. Protonix for GI prophylaxis GI recommendations appreciated DVT prophylaxis. Prognosis: Guarded given patient's multiple co-morbidities. Rest of plan per hospitalist and other consultants. Thank you, FRIEDA Maria, for allowing me to participate in this patient's care. Further recommendations will depend on the patient's clinical course. Please do not hesitate to contact me if you have any questions or concerns. This medical document was created using an electronic medical record system with [employer] system. Although these documentations are being carefully reviewed, there may still be some phonetic and typographical changes. The errors are purely typographical, due to imperfection on the software program, and do not reflect any compromise in the patient's medical care. Dietary Evaluation Review Comments: 1. Recommend diet progression to Low Fat diet if cholecystectomy needed 2. Encourage good PO intakes >75% of meals 3. Pt not to go >5 days NPO/CL diet only -> Currently Day 2 Expected Outcomes/Goals: Diet progression, improved GI sx. Plan discussed with: Patient, Other (RN) GREGORIO BLISS MD Sep 13, 2024 19:17
[2024-09-14 01:00] VITALS: BP 149/96; PULSE 86; RESP 16; TEMP 97.9; O2SAT 94
[2024-09-14 05:00] VITALS: BP 137/88; PULSE 81; RESP 16; TEMP 97.7; O2SAT 92
[2024-09-14 05:58] LABS: Basophils # (auto) 0 10 ^3/uL (0-0.2); Basophils % (auto) 0.4 % (0.0-2.0); Eosinophils # (auto) 0.1 10 ^3/uL (0-0.8); Eosinophils % (auto) 0.9 % (0.0-7.0); Hematocrit 38.2 % (36.0-46.0); Hemoglobin 13.1 g/dL (12.2-16.2); Lymphocytes # (auto) 0.9 10 ^3/uL (0.4-5.4); Lymphocytes % (auto) 12.5 % (10.0-50.0); Mean Corpuscular Hemoglobin 32.8 pg (28.0-32.0); Mean Corpuscular Hgb Conc. 34.4 g/dL (32.0-36.0); Mean Corpuscular Volume 95.2 fL (80.0-100.0); Monocytes # (auto) 0.4 10 ^3/uL (0-1.3); Monocytes % (auto) 5.2 % (0.0-12.0); Nucleated Red Blood Cells % 0.1 %; Platelet Count (auto) 192 10^3/uL (140-450); Red Blood Cells 4.01 10^6/uL (4.0-5.20); Red Cell Distribution Width 12.7 % (11.8-14.3); White Blood Cell 7.3 10^3/uL (4.4-10.8)
[2024-09-14 06:16] LABS: Alanine Aminotransferase 29 U/L (7-40); Albumin 3.6 g/dL (3.2-4.8); Alkaline Phosphatase 110 U/L (46-116); Anion Gap 7 (5-15); Aspartate Aminotransferase 30 U/L (13-40); Calcium 9.1 mg/dL (8.7-10.4); Carbon Dioxide 25 mmol/L (20-31); Chloride 105 mmol/L (98-107); Potassium 3.8 mmol/L (3.5-5.1); Sodium 137 mmol/L (136-145); Total Protein 6.5 g/dL (5.7-8.2)
[2024-09-14 06:17] LABS: BUN/Creatinine Ratio 6.8 (10.0-20.0); Bilirubin, Total 0.8 mg/dL (0.2-1.0); Blood Urea Nitrogen < 5 mg/dL (9-23); Glucose 174 mg/dL (74-106)
[2024-09-14 06:35] VITALS: BP 152/79; PULSE 89
[2024-09-14] MEDS: IOHEXOL 300 MG/ML 100ML BOTTLE IJ ONE (07:20)
[2024-09-14 09:00] VITALS: BP 126/45; PULSE 87; RESP 18; TEMP 99.5; O2SAT 93
[2024-09-14] MEDS ORDERED: guaiFENesin 200 MG/10 ML UD PO PRN (10:45)
--- NOTE | 2024-09-14 11:51 | DVHPN2 ---
Subjective Patient continues to have low-grade fever. Diarrhea resolved. Reviewed: Care Plan, H&P, Labs, Medications, Previous Orders Changes from previous H/P or p: No Changes General: Per HPI Objective Vitals Vital Signs Date Time Temp Pulse Resp B/P (MAP) Pulse Ox O2 Delivery O2 Flow Rate FiO2 09/14/24 09:42 87 126/45 09/14/24 09:00 99.5 18 93 99.5 09/14/24 08:00 Room Air* 0 21 Intake/Output Intake and Output 09/14/24 07:00 Intake Total 1740 ml Output Total 900 ml Balance 840 ml Intake Oral 1740 ml Output Urine Total 900 ml # Voids 3 # Bowel Movements 1 General Appearance: Alert, Oriented X3, Cooperative HEENT: PERRLA, Other (Oral Shantelle) Lungs: Clear to auscultation, Normal air movement Cardiovascular: Regular rate, Normal S1 Abdomen: Normal bowel sounds, Soft, No tenderness Extremities: No edema Neuro: Cranial nerves 3-12 NL Skin: Dry, Intact Psych/Mental Status: Mental status NL, Mood NL Medications Current Medications Medications Dose Ordered Sig/Stephanie Route Start Time Stop Time Status Last Admin Dose Admin Pantoprazole Sodium 40 mg DAILY IV 09/07/24 10:00 09/14/24 09:41 40 MG Ondansetron HCl 4 mg Q4HP PRN IV 09/07/24 02:45 Acetaminophen 650 mg Q6HP PRN PO 09/07/24 02:45 09/13/24 12:05 650 MG Morphine Sulfate 2 mg Q6HPRN PRN IV 09/07/24 02:45 Losartan Potassium 25 mg DAILY PO 09/11/24 10:00 09/14/24 09:41 25 MG Hydralazine HCl 10 mg Q6HP PRN IV 09/10/24 17:30 09/14/24 05:09 10 MG Nystatin 5 ml QID MT 09/10/24 22:00 09/14/24 11:47 5 ML Metoprolol Tartrate 25 mg BID PO 09/11/24 22:00 09/14/24 09:42 25 MG Ceftriaxone Sodium 50 ml @ 100 mls/hr DAILY@09 IV 09/12/24 09:00 09/14/24 09:41 100 MLS/HR Enteral Nutritional Formula 240 ml TIDWM PO 09/11/24 12:00 09/14/24 11:47 240 ML Potassium Chloride/Sodium Chloride 1,000 ml @ 75 mls/hr [id number] IV 09/13/24 13:30 09/14/24 05:04 75 MLS/HR Guaifenesin 200 mg Q4HP PRN PO 09/14/24 10:45 Laboratory Results Laboratory Tests 09/14/24 05:15 Chemistry Test 09/14/24 05:15 Albumin 3.6 g/dL (3.2-4.8) Calcium Level 9.1 mg/dL (8.7-10.4) Total Protein 6.5 g/dL (5.7-8.2) LFT Test 09/14/24 05:15 Alanine Aminotransferase (ALT) 29 U/L (7-40) Alkaline Phosphatase 110 U/L (46-116) Aspartate Amino Transferase (AST) 30 U/L (13-40) Total Bilirubin 0.8 mg/dL (0.2-1.0) Urinalysis Test 09/06/24 16:21 Urine Color Light-yellow (Yellow) Urine Clarity Clear (Clear) Urine pH 5.0 (5.0-9.0) Urine Specific [place] 1.007 (1.001-1.035) Urine Protein Negative (Negative) Urine Ketones 1+ (Negative) H Urine Blood Trace /uL (Negative) H Urine Nitrite Negative (Negative) Urine Bilirubin Negative (Negative) Urine Urobilinogen Normal mg/dL (Negative) Urine Leukocyte Esterase Negative /uL (Negative) Urine RBC 2 /hpf (0 - 4) Urine Microscopic WBC 4 /HPF (0-5) Urine Squamous Epithelial Cells Few /hpf (<5) Urine Bacteria Few /hpf (None Seen) H Urine Mucus Few (None Seen) Urine Glucose 4+ mg/dL (Normal) H Microbiology Microbiology Date/Time Source Procedure Growth Status 09/07/24 09:10 Blood Blood Culture - Final Escherichia coli Complete Labs and/or images reviewed: Labs reviewed by me, Image(s) reviewed by me Assessment/Plan Assessment/Plan Impression: -sepsis,? Cholelithiasis/cholecystitis -oral Shantelle -accelerated hypertension -septic shock -hypertension -GERD Plan: Events: CT of chest/abdomen, pelvis with IV contrast reveals right renal abscess versus neoplasm. Discussed findings with family as well as patient. Plans for MRI of the right kidney with contrast tomorrow. Blood culture still pending. -Repeat blood cultures: noted e coli on previous. -CT chest/abdomen/pelvis with IV contrast -patient continues to be hypokalemic. Restart IV fluids with potassium, oral potassium -repeat labs in a.m. -continue antibiotic therapy -pain management -increase oral intake -Hold DC. Discussed with patient and family Total time spent with patient discussing and formulating plan of care: 35 minutes. This medical document was created using an electronic medical record system with [employer] dictation system. Although this document has been carefully reviewed, there may still be some phonetic and typographical errors. These areas are purely typographical due to imperfections of the software programs, and do not reflect any compromise in the patient's medical care. Plan discussed with: Patient, Other (RN) My Orders Orders - HOLLIE DU NP Procedure Category Date Status Time Blood Culture MARIELLE 09/13/24 In Process 13:21 Ct Chest/Ab/Pl W Con- CT 09/13/24 Resulted Iv Only 13:21 Sod Chl 0.9%/ Kcl PHA 09/13/24 In Process [id number] 13:30 Mri Abdomen W And Wo MRI 09/14/24 Logged 11:15 Mri Abdomen W And Wo MRI 09/15/24 Logged 07:00 Date of Service: Sep 14, 2024 Billing Provider: HOLLIE DU NP Common Visit Codes: [id number] INP/OBS CARE(HIGH) HOLLIE DU NP Sep 14, 2024 11:51
[2024-09-14 13:00] VITALS: BP 126/56; PULSE 68; RESP 15; TEMP 98.5; O2SAT 95
[2024-09-14 14:32] VITALS: TEMP 100.4
--- NOTE | 2024-09-14 19:07 | DVHPN2 ---
Progress Note - Dictate Date Seen: Sep 14, 2024 Medical Necessity Reason Pt with a Central, PICC or Fol: No Subjective Patient seen and examined at bedside. Breathing on room air. Overnight events reviewed. vital signs Vital Sign Date Time Temp Pulse Resp B/P (MAP) Pulse Ox O2 Delivery O2 Flow Rate FiO2 09/14/24 14:32 100.4 09/14/24 13:00 68 15 126/56 (79) 95 09/14/24 08:00 Room Air* 0 21 Total Intake and Output 09/13/24 09/13/24 09/14/24 15:00 23:00 07:00 Intake Total 640 ml 1100 ml Output Total 900 ml Balance 640 ml 200 ml objective Gen.: Patient lying in bed in no apparent distress. On room air Head: Normocephalic, atraumatic. Eyes: EOMI/PERRLA. Ears: Normal hearing. Normal anatomy. Neck/trachea: Trachea midline, supple. Nose: Normal external anatomy. Mouth: Moist mucous membranes. Chest: Decreased air entry bilaterally. No wheezing or rhonchi. Cardiovascular: Positive S1, positive S2. Regular rate and rhythm. Abdomen: Positive bowel sounds in all 4 quadrants. Soft, non-tender, non- distended. : Deferred. Rectal: Deferred. Skin: Warm, dry. Intact. Extremities: 2+ radial pulses bilaterally. No lower extremity edema. Neuro: Awake, alert, oriented x3. No gross motor or sensory deficits. Cranial nerves II through XII intact. Gait not assessed. laboratory and microbiology Laboratory Tests 09/14/24 05:15 Test 09/14/24 05:15 Range/Units Serum Glucose 174 H 74-106 mg/dL Assessment/Plan Impression: Acute hypoxic respiratory failure Sepsis due to bacteremia with GPCs Lactic acidosis Acute gastroenteritis Abdominal pain, acute Febrile Events: Remains on room air Supplemental oxygen PRN Antitussive - patient complains of cough No shortness of breath Patient with low-grade temp, chills overnight Continue antibiotics Blood cultures grew E. coli Echo reviewed; LA enlarged. Recommend right heart catheterization Follow up Cardiology recs Continue antihypertensives Protonix for GI prophylaxis Continue nystatin for thrush Monitor renal function. Monitor electrolytes. Supplement as necessary. Potassium supplementation Labs and imaging reviewed. Rest of plan as noted below. Plan: Supplemental oxygen PRN Titrate to keep O2 sats above 92%. Complete antibiotics Continue antihypertensives Pressors if necessary for hemodynamic support Titrate to keep MAP above 65 mmHg/SBP above 90 mmHg Monitor renal function. Monitor electrolytes. Supplement as necessary. Monitor ins and outs. Protonix for GI prophylaxis GI recommendations appreciated DVT prophylaxis. Prognosis: Guarded given patient's multiple co-morbidities. Rest of plan per hospitalist and other consultants. Thank you, FRIEDA Maria, for allowing me to participate in this patient's care. Further recommendations will depend on the patient's clinical course. Please do not hesitate to contact me if you have any questions or concerns. This medical document was created using an electronic medical record system with [employer] dictation system. Although these documentations are being carefully reviewed, there may still be some phonetic and typographical changes. The errors are purely typographical, due to imperfection on the software program, and do not reflect any compromise in the patient's medical care. Dietary Evaluation Review Comments: 1. Recommend diet progression to Low Fat diet if cholecystectomy needed 2. Encourage good PO intakes >75% of meals 3. Pt not to go >5 days NPO/CL diet only -> Currently Day 2 Expected Outcomes/Goals: Diet progression, improved GI sx. Plan discussed with: Patient, Other (RN) GREGORIO BLISS MD Sep 14, 2024 19:07
--- NOTE | 2024-09-15 07:44 | DVHDS2 ---
Discharge Summary Date of Admission Sep 07, 2024 at 02:40 Date of Discharge: Sep 15, 2024 Admitting Diagnosis Acute abdominal pain Labs/Diagnostic Data: Laboratory Results Test 09/14/24 05:15 09/13/24 05:12 09/10/24 05:51 09/09/24 17:25 White Blood Count 7.3 10^3/uL (4.4-10.8) Red Blood Count 4.01 10^6/uL (4.0-5.20) Hemoglobin 13.1 g/dL (12.2-16.2) Hematocrit 38.2 % (36.0-46.0) Mean Corpuscular Volume 95.2 fL (80.0-100.0) Mean Corpuscular Hemoglobin 32.8 pg (28.0-32.0) Mean Corpuscular Hemoglobin Concent 34.4 g/dL (32.0-36.0) Red Cell Distribution Width 12.7 % (11.8-14.3) Platelet Count 192 10^3/uL (140-450) Mean Platelet Volume 8.2 fL (6.9-10.8) Neutrophils (%) (Auto) 81.0 % (37.0-80.0) Lymphocytes (%) (Auto) 12.5 % (10.0-50.0) Monocytes (%) (Auto) 5.2 % (0.0-12.0) Eosinophils (%) (Auto) 0.9 % (0.0-7.0) Basophils (%) (Auto) 0.4 % (0.0-2.0) Neutrophils # (Auto) 6.0 10 ^3/uL (1.6-8.6) Lymphocytes # (Auto) 0.9 10 ^3/uL (0.4-5.4) Monocytes # (Auto) 0.4 10 ^3/uL (0-1.3) Eosinophils # (Auto) 0.1 10 ^3/uL (0-0.8) Basophils # (Auto) 0 10 ^3/uL (0-0.2) Nucleated Red Blood Cells 0.1 % Sodium Level 137 mmol/L (136-145) Potassium Level 3.8 mmol/L (3.5-5.1) Chloride Level 105 mmol/L (98-107) Carbon Dioxide Level 25 mmol/L (20-31) Anion Gap 7 (5-15) Blood Urea Nitrogen < 5 mg/dL (9-23) Creatinine 0.74 mg/dL (0.550-1.02) Glomerular Filtration Rate Calc 85 mL/min (>90) BUN/Creatinine Ratio 6.8 (10.0-20.0) Serum Glucose 174 mg/dL (74-106) Calcium Level 9.1 mg/dL (8.7-10.4) Total Bilirubin 0.8 mg/dL (0.2-1.0) Aspartate Amino Transferase (AST) 30 U/L (13-40) Alanine Aminotransferase (ALT) 29 U/L (7-40) Alkaline Phosphatase 110 U/L (46-116) Total Protein 6.5 g/dL (5.7-8.2) Albumin 3.6 g/dL (3.2-4.8) Magnesium Level 1.8 mg/dL (1.6-2.6) Lipase 53 U/L (12-53) Lactic Acid Level 2.1 mmol/L (0.4-2.0) Test 09/09/24 05:39 09/08/24 09:00 09/07/24 18:55 09/06/24 16:21 Prothrombin Time 11.6 sec (9.3-11.8) Prothrombin Time INR 1.11 (0.9-1.15) Activated Partial Thromboplast Time 36.5 SEC (24.5-34.5) Triglycerides Level 200 mg/dL (< 150) Cholesterol Level 65 mg/dL (< 200) LDL Cholesterol 16 mg/dL (< 100) HDL Cholesterol < 5 mg/dL (40-59) Stool Occult Blood Negative (Negative) Stool Occult Blood Sample #3 (Negative) Blood Gas Specimen Type Arterial Blood Gas Sample Site Right radial Blood Gas Patient Temperature 37.0 Arterial Blood Date Drawn [id number] Arterial Blood pH 7.446 (7.350-7.450) Arterial Blood Partial Pressure CO2 22.1 mmHg (32.0-45.0) Arterial Blood Partial Pressure O2 68.2 mmHg (83.0-108.0) Arterial Blood HCO3 14.9 mmol/L (21.0-28.0) Arterial Blood Oxygen Saturation 94.7 % (94.0-98.0) Arterial Blood Base Excess -6.8 mmol/L (-2.0-3.0) Arterial Blood Oxyhemoglobin 94.1 % (94.0-98.0) Arterial Blood Carboxyhemoglobin 0.2 % (0.5-1.5) Arterial Blood Methemoglobin 0.4 % (0.0-1.5) Jerald Test Modified Blood Gas Total Hemoglobin 14.90 g/dL (12.0-16.0) Blood Gas Liter Flow 4.00 Blood Gas Modality Nasal cannula Blood Gas Spontaneous Rate 22 FiO2 % 36.0 Specimen Drawn By [facility] Urine Color Light-yellow (Yellow) Urine Clarity Clear (Clear) Urine pH 5.0 (5.0-9.0) Urine Specific [place] 1.007 (1.001-1.035) Urine Protein Negative (Negative) Urine Ketones 1+ (Negative) Urine Blood Trace /uL (Negative) Urine Nitrite Negative (Negative) Urine Bilirubin Negative (Negative) Urine Urobilinogen Normal mg/dL (Negative) Urine Leukocyte Esterase Negative /uL (Negative) Urine RBC 2 /hpf (0 - 4) Urine Microscopic WBC 4 /HPF (0-5) Urine Squamous Epithelial Cells Few /hpf (<5) Urine Bacteria Few /hpf (None Seen) Urine Mucus Few (None Seen) Urine Glucose 4+ mg/dL (Normal) Influenza Type A Antigen Negative (Negative) Influenza Type B Antigen Negative (Negative) SARS-CoV-2 Antigen (Rapid) Negative (NEGATIVE) Test 09/06/24 15:56 Differential Total Cells Counted 100.0 (100) Neutrophils % (Manual) 61 (37.0-80.0) Band Neutrophils % (Manual) 5 Lymphocytes % (Manual) 25 (10.0-50.0) Monocytes % (Manual) 9 (0-12) Eosinophils % (Manual) 0 (0-7) Basophils % (Manual) 0 (0.0-2.0) Metamyelocytes % (manual) 0 Myelocytes % (Manual) 0 Promyelocytes % (Manual) 0 Blast Cells % (Manual) 0 Reactive Lymphocytes 0 Platelet Estimate Adequate Anisocytosis (manual) Slight Stomatocytes Few Troponin I High Sensitivity < 3 ng/L (</=34) B-Type Natriuretic Peptide 15.34 pg/mL (0-100) Other Laboratory Tests 09/14/24 05:15 Brief Hx & Hospital Course: History of Present Illness 74-year-old female presents for evaluation of abdominal pain. Patient reports intermittent episodes of abdominal pain for the past one day. She states having multiple episodes of nausea with vomiting. She states not being able to keep anything down her stomach. She reports feeling dehydrated. Denies fever or chills. No dizziness. No other acute complaints. Course of hospitalization: Patient was CT scan of the abdomen and pelvis which revealed cholelithiasis. Surgical consultation was obtained. HIDA scan was negative. Surgery was held at this time. Patient was found to have E coli in the blood. Repeat cultures did not cleared the blood. I, myself to go over for Dr. Em, and found the patient have recurrent fevers. CT scan was repeated with IV contrast of the chest, abdomen, pelvis which revealed abscess versus neoplasm to the right kidney. Repeat blood culture is currently pending. Long discussion was made with the patient's family regarding findings on repeat CT scan. While they were agreeable for continued treatment including MRI with IV contrast on 09/15/2024, apparently the patient left against medical advice due to visitor restraints. Physical examination General: Alert and Oriented x3. No acute distress. Well-nourished. Eyes: EOMI. Anicteric. HENT: Moist mucous membranes. Lungs: Clear to auscultation bilaterally. No accessory muscle use. Cardiovascular: Regular rate and rhythm. No murmur. No JVD. Abdomen: Soft, non-tender and non-distended. No palpable masses. Extremities: No edema. Non-tender. Skin: No rashes or lesions. Warm. Neurologic: No focal neurological deficits. CN II-XII grossly intact, but not individually tested. Psychiatric: Cooperative. Appropriate mood and affect. Total time spent with patient discussing and formulating plan of care: 35 minutes. This medical document was created using an electronic medical record system with [employer] dictation system. Although this document has been carefully reviewed, there may still be some phonetic and typographical errors. These areas are purely typographical due to imperfections of the software programs, and do not reflect any compromise in the patient's medical care. Condition at Discharge: Fair Final Diagnosis/Problems List Sepsis with E coli in the blood Secondary diagnosis: -sepsis,? Cholelithiasis/cholecystitis -oral Shantelle -accelerated hypertension -septic shock -hypertension -GERD -right kidney mass versus abscess Discharge Disposition: AMA 36 Discharge Statement: "Patient was advised to return to the ER or call 911 if any headaches, dizziness, shortness of breath, chest pain, abdominal pain, bleeding, fevers, or worsening of medical condition. Patient was counseled about treatment plan, medications, possible side effects, patientverbalized understanding. All questions were answered to the best of my ability. This discharge took greater then 30 minutes in planning, reviewing documentation, counseling the patient, and discussing with other team members." ASSESSMENT ASSESSMENT Assessment Date of Service: Sep 15, 2024 Billing Provider: HOLLIE DU NP Common Visit Codes: 58797-CIU/OBS DISCH DAY >30min HOLLIE DU NP Sep 15, 2024 07:44
== END 2024-09-14 14:50 | disposition left against medical advice (07) | DRG 871 ==
LOC: EDBD 15:24 → ER 15:30 → OVERFLOW 09-07 02:40 → WEST WING 09-07 04:20 → TELE-WESTW 09-07 23:15 → CATH ICU 09-07 23:51 → TELE-EAST 09-08 18:15 → EAST 09-12 17:56
PROVIDERS: ADMIT Nurse Practitioner Acute Care; ATTEND Nurse Practitioner Acute Care
DX: A41.51 Sepsis due to Escherichia coli [E. coli] (principal); G93.41 Metabolic encephalopathy; J96.01 Acute respiratory failure with hypoxia; R65.21 Severe sepsis with septic shock; E87.20 Acidosis, unspecified; N39.0 Urinary tract infection, site not specified; K80.10 Calculus of gallbladder with chronic cholecystitis without obstruction; B37.0 Candidal stomatitis; K21.9 Gastro-esophageal reflux disease without esophagitis; D69.59 Other secondary thrombocytopenia; R13.10 Dysphagia, unspecified; K52.9 Noninfective gastroenteritis and colitis, unspecified; Z20.822 Contact with and (suspected) exposure to COVID-19; E11.65 Type 2 diabetes mellitus with hyperglycemia; I10 Essential (primary) hypertension; E87.6 Hypokalemia; K76.0 Fatty (change of) liver, not elsewhere classified; Z53.29 Procedure and treatment not carried out because of patient's decision for other reasons; Z79.899 Other long term (current) drug therapy; Z80.1 Family history of malignant neoplasm of trachea, bronchus and lung
CPT/HCPCS: 36415; 36600; 71045; 71260; 74176; 74177; 76705; 78226; 80048; 80053; 80061; 81001; 82270; 82805; 83605; 83690; 83735; 83880; 84484; 85007; 85025; 85027; 85610; 85730; 87040; 87077; 87186; 87426; 87804; 93005; 93306; 96361; 96374; 97110; 97116; 97163; 97530; 99291; G0378; J2470; J2543; Q0162